=== PATIENT | female | born 1990 | race Caucasian/White ===

== ENCOUNTER → 2018-01-20 11:46 | Outpatient (CLI) | payer OTHER, SELFPAY ==
[2018-01-07 09:04] VITALS: BMI 23.8
[2018-01-20 13:15] LABS: hCG Titer Quant., Serum 10131 mIU/mL (<9 non-preg)
== END ==
PROVIDERS: Family Provider Family Medicine; PCP Family Medicine; Referring Provider Obstetrics & Gynecology; Visit Provider Obstetrics & Gynecology
DX: O20.9 Hemorrhage in early pregnancy, unspecified (principal); Z3A.00 Weeks of gestation of pregnancy not specified
CPT/HCPCS: 36415; 84702; 86850; 86900

== ENCOUNTER → 2018-01-22 11:49 | Outpatient (CLI) | payer OTHER, SELFPAY ==
[2018-01-07 09:04] VITALS: BMI 23.8
[2018-01-22 15:18] LABS: hCG Titer Quant., Serum 19015 mIU/mL (<9 non-preg)
--- OUTSIDE RECORDS SUMMARY | 2018-03-10 15:17 | XMS RPT_ITS ---
:1990 Author Organization OHIP Support Name Relationship Address Phone MAHI SUMMERS Unavailable [address] + [place] [address] AMAN GRAYSON Unavailable [address] [facility] + [place] [address] [place] Unavailable [address] + [place] [address] MAHI SUMMERS Unavailable [address] + [place] [address] AMAN GRAYSON Unavailable [address] [facility] + [place] [address] [place] Unavailable [address] + [place] [address] MAHI SUMMERS Unavailable [address] + [place] [address] [place] Unavailable [address] + [place] [address] MAHI SUMMERS Unavailable [address] + [place] [address] [place] Unavailable [address] + [place] [address] MAHI SUMMERS Unavailable [address] + [place] [address] [place] Unavailable [address] + [place] [address] MAHI SUMMERS Unavailable [address] + [place] [address] [place] Unavailable [address] + [place] [address] MAHI SUMMERS Unavailable [address] + [place] [address] [place] Unavailable [address] + [place] [address] MELINA, MAHI Unavailable [address] + [place] [address] [place] Unavailable [address] + [place] [address] MAHI SUMMERS Unavailable [address] + [place] [address] U Unavailable Unavailable Unavailable Care Team Providers Name Role Phone Skyla Sheets Attending Unavailable Marcanthony, Skyla Referring Unavailable Ring, Primo Primary Care Unavailable Marcanthony, Skyla Attending Unavailable Ring, Primo Referring Unavailable Marcanthony, Skyla Attending Unavailable Ring, Primo Referring Unavailable Marcanthony, Skyla Attending Unavailable Ring, Primo Primary Care Unavailable Marcanthony, Skyla Referring Unavailable Marcanthony, Ksyla Attending Unavailable Marcanthony, Skyla Referring Unavailable Ring, Primo Primary Care Unavailable [place] Attending Unavailable Ring, Primo Referring Unavailable Marcanthony, Ksyla Attending Unavailable Ring, Primo Referring Unavailable Ring, Primo Primary Care Unavailable Truong, Christin Attending Unavailable Ring, Primo Referring Unavailable Marcanthony, Skyla Attending Unavailable Marcanthony, Sklya Referring Unavailable Ring, [facility] Primary Care Unavailable PROBLEMS PROBLEMS DATE TYPE CONDITION / CODE ATTENDING STATUS SOURCE 02/21/2018 Unknown Z34.90 - Encounter Marcanthony, Active [place] for supervision of [facility] normal , Hospital unspecified, Repository unspecified trimester / Z34.90(ICD-10) 02/21/2018 Unknown Z34.81 - Encounter Marcanthony, Active [place] for supervision of [facility] other normal Hospital , first Repository trimester / Z34.81(ICD-10) 02/10/2018 Unknown Z3A.08 - 8 weeks Marcanthony, Active [place] gestation of [facility] / Hospital Z3A.08(ICD-10) Repository 02/10/2018 Unknown Z34.01 - Encounter Marcanthony, Active [place] for supervision of [facility] normal first Hospital , first Repository trimester / Z34.01(ICD-10) 02/10/2018 Unknown O41.8X10 - Other Marcanthony, Active [place] specified disorders [facility] of amniotic fluid Hospital and membranes, Repository first trimester, not applicable or unspecified / O41.8X10(ICD-10) 02/10/2018 Unknown O46.8X1 - Other Marcanthony, Active [place] antepartum [facility] hemorrhage, first Hospital trimester / Repository O46.8X1(ICD-10) 03/29/2017 Unknown Z31.69 - Encounter Sudeep, Active [place] for other general [facility] counseling and Hospital advice on Repository procreation / Z31.69(ICD-10) 03/29/2017 Unknown Z01.419 - Encounter Sudeep, Active [place] for gynecological [facility] (general) (routine) Repository without abnormal findings / Z01.419(ICD-10) PROCEDURES PROCEDURES No Procedure Records FoundRESULTS RESULTS DETENTION OFFICER OFFICE VISIT Observed: 03/03/2018 Status: F Source: [place] REPORT 3:52 PM [facility] REPOSIT[facility] [address] [place] [address]. [address] [place] [address] OFFICE VISIT Date of Service: 03/03/18 MR#: [id number] Acct: [id number] Name: MARI GRAYSON Kelly Rep #: [id number] : 1990 Provider: CHELITA Guerin Age/Sex: 27/F [place] [facility] [place]: Signed Intake Vital Signs03/03/18 Body Mass Index (BMI) 23.8 03/03/18 Height 5 ft 1 in 03/03/18 Weight: 126 lb 03/03/18 Body Mass Index (BMI) 23.8 03/03/18 Blood Pressure 128/80 H H Intake Visit Reasons: boil/cyst? draining, but irritated Lighting Director Required: No Is patient in pain?: No Allergies aloe vera [From Vagisil] Adverse Reaction (Verified 03/03/18 15:15) swollen, burning benzocaine [From Vagisil] Adverse Reaction (Verified 03/03/18 15:15) swollen, burning mineral oil [From Vagisil] Adverse Reaction (Verified 03/03/18 15:15) swollen, burning resorcinol [From Vagisil] Adverse Reaction (Verified 03/03/18 15:15) swollen, burning starch [From Vagisil] Adverse Reaction (Verified 03/03/18 15:15) swollen, burning vitamin E (d-alpha tocopherol) [From Vagisil] Adverse Reaction (Verified 03/03/18 15:15) swollen, burning vitamins A and D [From Vagisil] Adverse Reaction (Verified 03/03/18 15:15) swollen, burning Medications vitamin,calcium,dlfqdwcm-skgj-qlbec acid tablet 1 tab PO DAILY 01/31/18 [History Confirmed 03/03/18] cephalexin 500 mg capsule 500 mg PO Q12H 7 Days #14 cap 03/03/18 [Rx Confirmed 03/03/18] Last Menstral Period: 12/12/17 Zika: Zika virus screening: Negative : No PFSH PFSH Family History Grandmother Diabetes Grandfather Cancer Leukemia Social History Smoking Status: Never smoker alcohol intake: never details: social substance use type: does not use caffeine: No what type of physical activity do you participate in: none seatbelt use: always do you feel safe at home: Yes additional social history: Aman- [employer] Patient works at [employer] Pregancy History 0 Elective abortions Hx Para Spontaneous abortions HPI boil/cyst? draining, but irritated: Details: MARI GRAYSON is a 27 year old who presents for routine OB visit. OB Visit PROSPER Calculator Estimated Delivery Date 09/18/18 Based on LMP (certain) 12/12/17 Current WG 11w 4d Number 1 Expected Delivery Route/Plan Specific Issue/Plans flu vaccine: declines tdap vaccine: [] rhogam: [] LARC form signed: [] labor support person: [] pain management: [] cut cord/dad catch: [] : [] PP control planned: [] special requests: [] Initial Weight: Not Recorded Date Weight BP Urine PrFHR FuHt Pres MoCTX DilationFetal StVisit NoProviderComments E ot v te GA G Effac lucose ed Visit Notes Visit Date: 03/03/18 Work in for tender lump inner buttocks-confirm occlusion cyst. LAKIA Avila on 03/03/18 ACOG First Trimester First Trimester: Desire for , Alcohol, Tobacco Cessation, Illicit/Recreational Drug/Substance Use, Intimate Partner Violence, Barriers to care, Unstable Housing, Communication Barriers, Environmental/Work Hazards, Anticipated Course of Care, Toxoplasmosis Precations, Use of Any medications, Sexual activity, Exercise, Dental Care, Sauna/Hot tub use, Seat Belt use, Childbirth classes/Hospital facilities, , Travel, Indications for US and Screening for Aneuploidy Diagnostics Diagnostics Labs Blood Type O POSITIVE 02/21/18 Antibody Screen NEGATIVE 02/21/18 Hct 37.3 % (37-47) 02/21/18 Hgb 12.4 g/dl (12.0-15.0) 02/21/18 Rubella IgG Antibody 53.2 IU/mL 02/21/18 RPR NONREACTIVE (NONREACTIVE) 02/21/18 Hep Bs Antigen Negative (Negative) 02/21/18 Chlam trachomat DNA PCR Negative (Negative) 02/10/18 N.gonorrhoeae DNA (PCR) Negative (Negative) 02/10/18 Miscellaneous Test 02/21/18 Details: HIV: Urine Culture: Sequential Screen: NIPT Screen: Exam Const General: cooperative, no acute distress Orientation: oriented x3 Other: Right inner gluteus near perineum is 1cm erythematous occlusion cyst without drainage. States did have drainage yesterday Assessment AND Plan Problems 1. Inclusion cyst L72.0 2. Encounter for supervision of normal first in first trimester Z34.01 PROSPER 09/18/18 Aman. 3. 11 weeks gestation of Z3A.11 genetic, ntd, carrier screening discussed and definitely wants sequential but considering NIPT. 4. Subchorionic hemorrhage of placenta in first trimester, single or unspecified fetus O41.8X10 Plan Warm compresses or tub soaks. Do not manipute Rx Keflex. Keep routine OB appt or call if symptoms worsen Orders Orders: Medications New: Coding Level of Care Code Off vis,est,level 3 Diagnoses Inclusion cyst L72.0 Encounter for supervision of normal first in first trimester Z34.01 Normal : normal first Trimester: first trimester 11 weeks gestation of Z3A.11 Weeks of gestation: 11 weeks Subchorionic hemorrhage of placenta in first trimester, single or unspecified fetus O41.8X10 Fetus number: single or unspecified fetus Trimester: first trimester 03/03/18 1552 <Electronically signed by Christin DORMAN> Date Christin Guerin [employer] Cosigner Signature: Date (if applicable) CC: MISCELLANEOUS LAB Collected: 02/21/2018 Status: F Source: [place] PROCEDURE 9:24 AM [facility] REPOSITORY Order Comment: Test(s) Ordered: PANORAMA TYPE CODE TESTS RESULT OUT OF RANGE REFERENCE UNITS LAB L801.1541 Normal [facility] [place] Result Comment: Sent directly to testing facility per ordering physician. @ 02/26/18 1252 MYOUNG Performed By: #### L801.1541 #### [facility] [address] [place], [address] CBC W/DIFF, AUTOMATED Collected: 02/21/2018 Status: F Source: [place] 9:23 AM [facility] REPOSITORY TYPE CODE TESTS RESULT OUT OF RANGE REFERENCE UNITS LAB L100.1000 4.4-11.0 K/mm3 Normal WBC 7.8 LAB L100.1200 4.2-5.4 M/mm3 Normal RBC 4.34 LAB L100.1300 12.0-15.0 g/dl Normal HGB 12.4 LAB L100.1400 37-47 % Normal HCT 37.3 LAB L100.1500 81-99 fL Normal MCV 85.9 LAB L100.1600 27.0-32.0 pg Normal MCH 28.6 LAB L100.1700 32-36 g/gl Normal MCHC 33.2 LAB L100.1810 11.6-14.6 % Normal RDW CV 13.3 LAB L100.1820 35.1-43.9 fl Normal RDW SD 41.7 LAB L100.1900 150-450 K/mm3 Normal PLT 230 LAB L100.2000 6.2-12.0 fl Normal MPV 9.8 LAB L100.2100 47-70 % Normal NEUT% 67.4 LAB L100.2200 19-41 % Normal LY% 22.1 LAB L100.2300 0-10 % Normal MONO% 9.4 LAB L100.2400 0-5 % Normal EO% 0.5 LAB L100.2500 0-1 % Normal BASO% 0.5 LAB L100.2550 0.0-0.9 % Normal IM GRAN % 0.100 Result Comment: IG% - Immature Granulocytes (promyelocytes, myelocytes and metamyelocytes) > 1% indicates that a LEFT SHIFT is Present. LAB L100.2620 2.0-7.7 X10 3/uL Normal Absolute Neut 5.3 LAB L100.2720 0.83-4.51 X10 3/ul Normal Absolute Lymph 1.73 Performed By: #### L100.0100 #### [facility] [address] [place], [address] RUBELLA IGG Collected: 02/21/2018 Status: F Source: [place] 9:23 AM [facility] REPOSITORY TYPE CODE TESTS RESULT OUT OF RANGE REFERENCE UNITS LAB L509.4000 IU/mL Normal Rubella IgG 53.2 Result Comment: Antibody results Interpretation of Immune Status < 5 IU/ml Presumed Non-immune 5 - < 10 IU/ml Equivocal > or = 10 IU/ml Presumed Immune Performed By: #### L509.4000, L3890.6005 #### [facility] [address] [place], [address] HIV - [facility] Collected: 02/21/2018 Status: F Source: [place] 9:[facility] TYPE CODE TESTS RESULT OUT OF RANGE REFERENCE UNITS LAB L3890.6005 Nonreactive Normal HIV - [facility] Non-Reactive Performed By: #### L509.4000, L3890.6005 #### [facility] [address] [place], [address] TYPE AND SCREEN Collected: 02/21/2018 Status: F Source: [place] 9:23 AM [facility] REPOSITORY Order Comment: Reason for Type AND Screen/Red Cells: TYPE CODE TESTS RESULT OUT OF RANGE REFERENCE UNITS LAB B10.0800 O Normal BLOOD TYPE GEL POSITIVE LAB B100.4000 Normal Antibody NEGATIVE Screen Performed By: #### B101.7450 #### [facility] [address] [place], [address] HEPATITIS B SURFACE Collected: 02/21/2018 Status: F Source: [place] AG 9:23 AM [facility] REPOSITORY TYPE CODE TESTS RESULT OUT OF RANGE REFERENCE UNITS LAB L3100.0400 Negative Normal HB Negative SURF AG Result Comment: Performed at: [facility] [id number] Dental Mechanic: Kodak Tineo PhD, Phone: [phone] Performed By: #### L3100.0390 #### [facility] (refer to report for specific site) refer to report for address and phone number RAPID PLASMIN REAGIN Collected: 02/21/2018 Status: F Source: [place] (RPR) 9:23 AM [facility] REPOSITORY TYPE CODE TESTS RESULT OUT OF REFERENCE UNITS RANGE LAB L700.5000 NONREACTIVE NONREACTIVE Normal RPR Performed By: #### L700.5000 #### [facility] [facility] [place], [place], [address] CT/NG [facility] BY PCR Collected: 02/10/2018 Status: F Source: [place] 5:35 PM [facility] REPOSIT[facility] TYPE CODE TESTS RESULT OUT OF RANGE REFERENCE UNITS LAB L8200.2100 Negative Normal Chlam Negative Trac PCR LAB L8200.2200 Negative Normal NG by Negative PCR Performed By: #### L8200.2000 #### [facility] [place], [place], [address] Observed: 02/10/2018 Status: F Source: [place] CULTURE, URINE 5:35 PM [facility] REPOSITORY Urine Culture There are no CLSI standards for interpretation of this Drug/Organism combination. ORGANISM 1: Lactobacillus species [place] Count 25,000-50,000 Performed By: #### M100.0650 #### [facility] [address] [place], [place] [address]e. [place], [place], [address] DETENTION OFFICER OFFICE VISIT Observed: 02/10/2018 Status: F Source: [place] REPORT 2:13 PM [facility] REPOSITORY [facility] [address] [place] [address] OFFICE VISIT Date of Service: 02/10/18 MR#: [id number] Acct: [id number] Name: MARI GRAYSON Rep #: [id number] : 1990 Provider: Skyla Sheets MD Age/Sex: 27/F [place] [facility] [place]: Signed Intake Vital Signs02/10/18 Body Mass Index (BMI) 23.8 02/10/18 Height 5 ft 1 in 02/10/18 Weight: 124 lb 2 oz 02/10/18 Body Mass Index (BMI) 23.4 02/10/18 Blood Pressure 118/74 Intake Visit Reasons: NOB LMP 12/12 Chief Complaint: New OB Accompanied by: Spouse Is patient in pain?: No Allergies aloe vera [From Vagisil] Adverse Reaction (Verified 02/10/18 13:27) swollen, burning benzocaine [From Vagisil] Adverse Reaction (Verified 02/10/18 13:27) swollen, burning mineral oil [From Vagisil] Adverse Reaction (Verified 02/10/18 13:27) swollen, burning resorcinol [From Vagisil] Adverse Reaction (Verified 02/10/18 13:27) swollen, burning starch [From Vagisil] Adverse Reaction (Verified 02/10/18 13:27) swollen, burning vitamin E (d-alpha tocopherol) [From Vagisil] Adverse Reaction (Verified 02/10/18 13:27) swollen, burning vitamins A and D [From Vagisil] Adverse Reaction (Verified 02/10/18 13:27) swollen, burning Medications vitamin,calcium,zgzyrlvv-ioeh-fkude acid tablet 1 tab PO DAILY 01/31/18 [History Confirmed 02/10/18] Last Menstral Period: 12/12/17 Zika: Zika virus screening: Negative : No PFSH PFSH Family History Grandmother Diabetes Grandfather Cancer Leukemia Social History Smoking Status: Never smoker alcohol intake: never details: social substance use type: does not use caffeine: No what type of physical activity do you participate in: none seatbelt use: always do you feel safe at home: Yes 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 OB Visit Comments: fhts seen viable IUP Menstrual History Last Menstral Period: 12/12/17 Reported LMP: definite Normal amount/duration: Yes On hormonal BC at conception: No Antepartum Record Genetic Screening: Congenital Heart Defect: Other, Neural Tube Defect: Other, Hemoglobinopathy Or Carrier: Other, Cystic Fibrosis: Other, Chromosome Abnormality: Other, Ollie-Sachs: Other, Hemophilia: Other, Intellectual Disability/Autism: Other, Recurrent Loss/Stillbirth: Other, Other Structural Defect: Other, Other Genetic Disease: Other, Maternal Metabolic Disorder: Other Infection History: Live with someone with TB or Exposed to TB: No, Patient or Partner has history of Genital Herpes: No, Rash or Viral illness since last mentrual period: No, Prior GBS-Infected child: No, History of STD: No, HIV Infection: No, History of Hepatitis: No, Recent travel outside of [place]: No, Concern for Hep exposure: No, Varicella immune: Yes Medical History Medical History: Negative: Diabetes, Hypertension, Heart disease, Auto-immune disorder, Kidney disease/UTI, Neurologic/epilepsy, Psychiatric, Depression/ depression, Hepatitis/liver disease, Varicosities/phlebitis, Thyroid dysfunction, Trauma/domestic violence, History of blood transfusions, D (Rh) Sensitized, Pulmonary (e.g.,TB,Asthma), Seasonal allergies, Drug/latex allergies/reactions, Breast, Cardiology Technologist surgery, Operations/hospitalizations, Anesthetic complications, History of abnormal pap, Uterine anomaly/maris, Infertility, Anti-retroviral treatment, Relevant family history, Other ACOG First Trimester First Trimester: , Desire for , Alcohol, Tobacco Cessation, Illicit/Recreational Drug/Substance Use, Intimate Partner Violence, Barriers to care, Unstable Housing, Communication Barriers, Environmental/Work Hazards, Anticipated Course of Care, Nurtrition and weight gain, Toxoplasmosis Precations, Use of Any medications, Sexual activity, Exercise, Dental Care, Sauna/Hot tub use, Seat Belt use, Childbirth classes/Hospital facilities, Travel, Indications for US and Screening for Aneuploidy ROS Const Denies fever(s), Reports system reviewed and no additional complaints, except as docu, Reports fatigue Eyes Reports system reviewed and no additional complaints, except as docu ENT Reports system reviewed and no additional complaints, except as docu Card Denies chest pain, Denies shortness of breath Resp Reports system reviewed and no additional complaints, except as docu, Denies shortness of breath, Denies cough GI Reports nausea, Denies abdominal pain Reports system reviewed and no additional complaints, except as docu Musc Reports system reviewed and no additional complaints, except as docu Skin/Breast Reports system reviewed and no additional complaints, except as docu Neuro Yes system reviewed and no additional complaints, except as docu Psych Reports system reviewed and no additional complaints, except as docu Endo Reports fatigue, Reports system reviewed and no additional complaints, except as docu Exam Const General: healthy appearing, comfortable, no acute distress Orientation: alert [facility] Head: normal to inspection, atraumatic, normocephalic Ears: external ears normal, hearing grossly normal bilaterally Nose: nares normal, external nose normal Mouth: oral mucosae normal Teeth and gingiva: dentition normal Eyes General: appearance normal, both eyes and all related structures Neck Neck: no lymphadenopathy, supple, normal visual inspection Thyroid: thyroid normal Resp Effort AND Inspection: normal respiratory effort GI Inspection: normal to inspection Palpation: soft, no hepatosplenomegaly General: bladder normal to palpation External Female Exam: normal external appearance, normal appearance of the urethra Urethra: normal appearance of the urethra Speculum Exam - Vagina: normal appearance of the vagina, normal vaginal discharge Speculum Exam - Cervix: normal appearance of the cervix Bimanual Exam- Vagina AND Uterus: bladder normal to palpation, normal bimanual exam, uterus non-tender, other Bimanual Exam- Adnexa, other: adnexae non-tender Skin General: no rashes or lesions noted Neuro Motor: muscle tone normal throughout, no movement abnormalities noted Extrem General: normal to inspection, full ROM Assessment AND Plan Problems 1. 8 weeks gestation of Z3A.08 genetic, ntd, carrier screening discussed and definitely wants sequential but considering NIPT. 2. Encounter for supervision of normal first in first trimester Z34.01 PROSPER 09/18/18 Aman. 3. Subchorionic hemorrhage of placenta in first trimester, single or unspecified fetus O41.8X10; O46.8X1 Plan Patient oriented to practice and discussed care expectations and screenings. ACOG book offered to patient. Discussed routine and specially indicated labs if needed- patient consents to testing. see problem list details for plan information. Optional screening including carrier screenings, neural tube defect screening, sequential screening, and NIPT screening offered to patient and patient chose: see problem list Orders Orders: Supplemental Info ACOG book given and patient encouraged to read about nutrition, exercise, weight gain, and food avoidance in . Coding Level of Care Code OB Routine Diagnoses 8 weeks gestation of Z3A.08 Weeks of gestation: 8 weeks Encounter for supervision of normal first in first trimester Z34.01 Normal : normal first Trimester: first trimester Subchorionic hemorrhage of placenta in first trimester, single or unspecified fetus O41.8X10; O46.8X1 Fetus number: single or unspecified fetus Trimester: first trimester 02/10/18 1413 <Electronically signed by Skyla Sheets MD> Date Skyla Sheets MD Cosigner Signature: Date (if applicable) CC: DETENTION OFFICER OFFICE VISIT Observed: 02/01/2018 Status: F Source: [place] REPORT 4:14 AM [facility] REPOSITORY [facility] [address] [place] [address] OFFICE VISIT Date of Service: 01/31/18 MR#: [id number] Acct: [id number] Name: MARI GRAYSON Rep #: [id number] : 1990 Provider: Skyla Sheets MD Age/Sex: 27/F [place] [facility] [place]: Signed Intake Vital Signs01/31/18 Body Mass Index (BMI) 23.8 01/31/18 Height 5 ft 1 in 01/31/18 Weight: 125 lb 01/31/18 Body Mass Index (BMI) 23.6 01/31/18 Blood Pressure 118/78 Intake Visit Reasons: EARLY OB SCAN - BROWN DISCHARGE Lighting Director Required: No Is patient in pain?: No Allergies aloe vera [From Vagisil] Adverse Reaction (Verified 01/31/18 16:33) swollen, burning benzocaine [From Vagisil] Adverse Reaction (Verified 01/31/18 16:33) swollen, burning mineral oil [From Vagisil] Adverse Reaction (Verified 01/31/18 16:33) swollen, burning resorcinol [From Vagisil] Adverse Reaction (Verified 01/31/18 16:33) swollen, burning starch [From Vagisil] Adverse Reaction (Verified 01/31/18 16:33) swollen, burning vitamin E (d-alpha tocopherol) [From Vagisil] Adverse Reaction (Verified 01/31/18 16:33) swollen, burning vitamins A and D [From Vagisil] Adverse Reaction (Verified 01/31/18 16:33) swollen, burning Medications vitamin,calcium,zatvqxvg-qnzr-hvzdx acid tablet 1 tab PO DAILY 01/31/18 [History Confirmed 01/31/18] Last Menstral Period: 12/12/17 Zika: Zika virus screening: Negative : No PFSH PFSH Social History Smoking Status: Never smoker alcohol intake: current details: social substance use type: does not use caffeine: No frequency: 1-2 times per week seatbelt use: always do you feel safe at home: Yes 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 small subchorionic hemorrhage ACOG First Trimester First Trimester: Discussed Diagnostics Diagnostics Labs Blood Type O POSITIVE 01/20/18 Antibody Screen NEGATIVE 01/20/18 Details: HIV: Urine Culture: Sequential Screen: NIPT Screen: Assessment AND Plan Problems 1. Subchorionic hemorrhage O41.8X90; O46.8X9 Plan fu for new ob visit Coding Level of Care Code OB Routine Diagnoses Subchorionic hemorrhage O41.8X90; O46.8X9 02/01/18 0414 <Electronically signed by Skyla Sheets MD> Date Skyla Sheets MD Cosigner Signature: Date (if applicable) CC: HCG TITER QUANT., Collected: 01/22/2018 Status: F Source: PRASHANT SERUM 11:53 AM [facility] REPOSITORY TYPE CODE TESTS RESULT OUT OF RANGE REFERENCE UNITS LAB L700.8000 <9 non-preg mIU/mL High HCG 60843 QUANT. Performed By: #### L700.8000 #### [facility] [address] [place], [place], [address] HCG TITER QUANT., Collected: 01/20/2018 Status: F Source: PRASHANT SERUM 11:56 AM [facility] REPOSITORY TYPE CODE TESTS RESULT OUT OF RANGE REFERENCE UNITS LAB L700.8000 <9 non-preg mIU/mL High HCG 04057 QUANT. Performed By: #### L700.8000 #### [facility] [address] [place], [address] TYPE AND SCREEN Collected: 01/20/2018 Status: F Source: PRASHANT 11:56 AM [facility] REPOSITORY Order Comment: Reason for Type AND Screen/Red Cells: TYPE CODE TESTS RESULT OUT OF RANGE REFERENCE UNITS LAB B10.0800 O Normal BLOOD TYPE GEL POSITIVE LAB B100.4000 Normal Antibody NEGATIVE Screen Performed By: #### B101.7450 #### [facility] [address] [place], [place], [address] DETENTION OFFICER OFFICE VISIT Observed: 01/07/2018 Status: F Source: PRASHANT REPORT 9:25 AM [facility] REPOSITORY [facility] 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 Is patient in pain?: Yes (More irritating due to rubbing) Pain scale (1-10): 4 Allergies aloe vera [From Vagisil] Adverse Reaction (Verified 01/07/18 09:06) swollen, burning benzocaine [From Vagisil] Adverse Reaction (Verified 01/07/18 09:06) swollen, burning mineral oil [From Vagisil] Adverse Reaction (Verified 01/07/18 09:06) swollen, burning resorcinol [From Vagisil] Adverse Reaction (Verified 01/07/18 09:06) swollen, burning starch [From Vagisil] Adverse Reaction (Verified 01/07/18 09:06) swollen, burning vitamin E (d-alpha tocopherol) [From Vagisil] Adverse Reaction (Verified 01/07/18 09:06) swollen, burning vitamins A and D [From Vagisil] Adverse Reaction (Verified 01/07/18 09:06) swollen, burning Medications cephalexin 500 mg capsule 500 mg PO Q12H 7 Days #14 cap 01/07/18 [Rx Confirmed 01/07/18] Is last menstrual period known: Yes Last Menstral Period: 12/12/17 Post menopausal: No Patient : No : No PFSH Social History Smoking Status: Never smoker alcohol intake: current details: social substance use type: does not use caffeine: No frequency: 1-2 times per week seatbelt use: always do you feel safe at home: Yes additional social history: [employer] 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 Actually smaller today but has not noted any discharge. No contraception, wants . Menses due next week. Female Reproductive History Last Menstral Period: 12/12/17 Pregancy History 0 Elective abortions Hx Para Spontaneous abortions Exam Const General: cooperative, no acute distress Nutritional Appearance: well nourished Orientation: oriented x3 External Female Exam: bartholin cyst (left labia, small <1cm. sl erythema. No fluctuance. ) Assessment AND Plan Problems 1. Bartholin's gland infection N75.8 Plan Rx keflex Warm soaks Call if worsens Medications New: On Hold: levonorgestrel-ethinyl estrad 0.1-20 mg-mcg (Aviane) Hold C1 tab PO QDAY 28 tabs 12RF omment: None Coding Level of Care Code Off vis,est,level 3 Diagnoses Bartholin's gland infection N75.8 01/07/18 0925 <Electronically signed by Christin DORMAN> Date Christin DORMAN Cosigner Signature: Date (if applicable) CC: DETENTION OFFICER OFFICE VISIT Observed: 03/29/2017 Status: F Source: PRASHANT REPORT 9:05 AM [facility] 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) Chief Complaint: NEW annual Lighting Director Required: No Is patient in pain?: No Allergies No Known Allergies Allergy (Unverified 03/29/17 08:29) Medications levonorgestrel-ethinyl estradiol 0.1 mg-20 mcg tablet 1 tab PO QDAY 03/29/17 [History Confirmed 03/29/17] Is last menstrual period known: Yes Last Menstral Period: 03/28/17 Post menopausal: No Patient : No : No PFSH Social History Smoking Status: Never smoker alcohol intake: current details: social substance use type: does not use caffeine: No frequency: 1-2 times per week seatbelt use: always do you feel safe at home: Yes additional social history: Engaged- [employer] Patient works at [employer] Pregancy History 0 Elective abortions Hx Para Spontaneous abortions HPI 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 getting in october, wants to conceive right away. 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), PCB: No ROS Const Constitutional: Reports as per HPI; denies poor appetite, fatigue, increased appetite, weight gain or weight loss Cardio Card: Denies chest pain Resp Resp: Denies dyspnea or cough GI GI: Reports as per HPI; denies bloating, abdominal pain, constipation, vomiting or nausea : Reports as per HPI and other; denies blood in urine, vaginal odor, vaginal itching, vaginal dryness, vaginal discharge, urinary urgency, urinary incontinence, urinary frequency, pelvic pain, painful urination, difficulty urinating, prolapse symptoms or nipple discharge Skin Skin/Breast: Denies breast pain, breast skin changes, nipple discharge, breast lump or changing lesions Exam Const General: cooperative, healthy appearing, comfortable, no acute distress, well developed, well groomed [facility] Head: normal to inspection, normocephalic Ears: hearing grossly normal bilaterally, external ears normal Nose: external nose normal Face and sinus: normal facial exam Neck Neck: normal visual inspection, full ROM, no lymphadenopathy Thyroid: thyroid normal Chest Chest palpation AND inspection: normal inspection of the chest Breast inspection: normal inspection of the breasts, normal inspection of the axillae Breast palpation: normal palpation of the breasts, normal palpation of the axillae, no axillary lymphadenopathy Resp Effort AND Inspection: normal respiratory effort GI Inspection: normal to inspection, non-distended Palpation: no guarding, soft, no hepatosplenomegaly General: bladder normal to palpation External Female Exam: normal external appearance, normal appearance of the urethra, no lesions Urethra: normal appearance of the urethra, normal palpation Speculum Exam - Vagina: normal appearance of the vagina, normal vaginal discharge Speculum Exam - Cervix: normal appearance of the cervix, no cervical discharge, no lesions, nontender Bimanual Exam- Vagina AND Uterus: No cervical tenderness, normal bimanual exam, uterine size normal, bladder normal to palpation, uterine mobility normal, uterine consistency normal, uterus non-tender, no cervical motion tenderness Bimanual Exam- Adnexa, other: normal adnexae, no adnexal masses, adnexae non-tender Skin General: no rashes or lesions noted Neuro General: alert, moves all extremities, no focal motor deficits Extrem General: no pedal edema, normal to inspection Psych Appearance: grossly normal Mental Status: mental status grossly normal Affect: normal affect Speech and Movement: speech and movement normal Attitude: cooperative Assessment AND Plan Problems 1. Pre-conception counseling Z31.69 2. Encounter for gynecological examination without abnormal finding Z01.419 Plan Cervical cancer screening: na Breast cancer screening: clinical STD prevention and contraceptive options including their risks, benefits, and alternatives were reviewed with the patient and she chooses: ocp Encouraged maintenance of a healthy weight and active lifestyle and handout given. Calcium/vitamin D recommendations provided. Annual exam handout including recommendations for good health guidelines and basic screening information given. Problem list up to date, see problem list details for any additional plan information. follow up in one year for annual health maintenance exam or sooner if needed. Coding Level of Care Code Off vis,new,prev 18-39yrs Diagnoses Pre-conception counseling Z31.69 Encounter for gynecological examination without abnormal finding Z01.419 Gynecological examination findings: abnormal findings ABSENT 03/29/17 0905 <Electronically signed by Skyla Sheets MD> Date Skyla Sheets MD Cosigner Signature: Date (if applicable) CC: ALLERGIES ALLERGIES DATE TYPE / CODE NAME / CODE REACTION SEVERITY SOURCE 03/03/2018 Drug vitamin E swollen, Unknown [facility] All[facility]/416 (d-alpha [facility] 511450(SNOM tocopherol)/F00 [address] CT) 7007538(RXNORM) 03/03/2018 Drug vitamins A and swollen, Unknown [facility] Allergy/416 D/[id number](RX [facility] 171542(SNOM NORM) Repository ED CT) 03/03/2018 Drug benzocaine/F006 swollen, Unknown [facility] Allergy/416 836418(RXNORM) [facility] 929940(SNOM Repository ED CT) 03/03/2018 Drug mineral swollen, Unknown [facility] Allergy/416 oil/B766758732( [facility] 582561(SNOM RXNORM) Repository ED CT) 03/03/2018 Drug aloe swollen, Unknown [facility] Allergy/416 vera/H564859165 [facility] 907209(SNOM (RXNORM) Repository ED CT) 03/03/2018 Drug resorcinol/F006 swollen, Unknown [facility] Allergy/416 988904(RXNORM) [facility] 009426(SNOM Repository ED CT) 03/03/2018 Drug starch/P5083279 swollen, Unknown [facility] Allergy/416 33(RXNORM) [facility] 813160(SNOM Repository ED CT) 03/29/2017 Drug No Known Unknown [facility] Allergy/416 Allergies/F0019 [facility] 030854(SNOM 67306(RXNORM) Repository ED CT) ENCOUNTERS ENCOUNTERS ADMIT/DISCHARGE ACCOUNT ADMITTING ENCOUNTER LOCATION SOURCE NUMBER CLASS 03/03/2018/ [id number] Ambulatory BMSBuilding:B [facility] [address] [facility] Repository 02/21/2018 [id number] Ambulatory [facility] 6 [facility] ing:LAB Repository 02/10/2018 [id number] Ambulatory [facility] ing:LABSPEC Repository 02/10/2018/ [id number] Ambulatory BMSBuilding:B [facility] [address] [facility] Repository 01/31/2018/ [id number] Ambulatory BMSBuilding:B [facility] [address] [facility] Repository 01/22/2018 [id number] Ambulatory [facility] 2 [facility] ing:LAB Repository 01/20/2018 [id number] Ambulatory [facility] ing:LAB Repository 01/07/2018/ [id number] Ambulatory BMSBuilding:B [facility] [address] [facility] Repository 03/29/2017/ [id number] Ambulatory BMSBuilding:B Pr[facility] [address] [facility] Repository PAYERS PAYERS ENCOUNTER GUARANTOR PAYER SUBSCRIBER SOURCE 03/03/2018 MARI GRAYSON121 Primary AMAN KRUKDOB: Prashant [place] Insurance[place]HE[place]olic [id number] Number[place] Hospital [address]Nyf: 330 [id number] Repository [phone] () Date:2772-66-26VJ [id number] [place] [address]SG: 03/03/2018 Secondary NOT GIVENUNK [facility] Insurance:SELF PAY [facility] Hospital Number: Effective Repository Date:2018-03-03 02/21/2018 MARI NARAYANANUK121 Primary AMAN KRUKDOB: [facility] [place] Insurance:ANTHEMPolic [id number] Number: Hospital [id number]: (330 [id number] Repository [phone] () Date:7829-35-85FE [id number] [place] [address]LJ: 02/21/2018 Secondary NOT GIVENUNK [facility] Insurance:SELF PAY [facility] Hospital Number: Effective Repository Date:2018-02-21 02/10/2018 MARI NARAYANANUK121 Primary MAHI GREENEHANNAHOB: Prashant [place] Insurance:SUMMA [id number] Number: Hospital [address]Ofb: (330 [id number] Repository [phone] (HP) Date:9045-94-77SE [address] [place] [phone]: 02/10/2018 Secondary NOT GIVENUNK [facility] Insurance:SELF PAY [facility] Number: Effective Repository Date:2018-02-10 02/10/2018 MARI POPEOB: [facility] [id number] [place] Insurance:[facility] [id number] [place] CAREPolicy Number: Hospital [id number]: (330) [id number] Repository [phone] (HP) Date:5771-32-16PL [address] [place] [address]BR: 02/10/2018 Secondary NOT GIVENUNK [facility] Insurance:SELF PAY [facility] Number: Effective Repository Date:2018-01-10 01/31/2018 MARI POPEOB: Prashant [id number] [place] Insurance:[facility] [id number] [place] CAREPolicy Number: Hospital [address]Wig: (330) [id number] Repository [phone] (HP) Date:1756-41-07SY [address] [place] [address]YX: 01/31/2018 Secondary NOT GIVENUNK Prashant Insurance:SELF PAY [facility] Number: Effective Repository Date:2018-01-30 01/22/2018 MARI POPEOB: [facility] [id number] [place] Insurance:[facility] [id number] [place] CAREPolicy Number: Hospital [address]Wkc: (330) [id number] Repository [phone] (HP) Date:5285-75-80BB [address] [place] [address]DN: 01/22/2018 Secondary NOT GIVENUNK [facility] Insurance:SELF PAY [facility] Number: Effective Repository Date:2018-01-22 01/20/2018 MARI POPEOB: [facility] [id number] [place] Insurance:[facility] [id number] CAREPolicy Number: Hospital [id number]: (330 [id number] Repository [phone] (HP) Date:2766-62-95CZ [address] [address]ZQ: 01/20/2018 Secondary NOT GIVENUNK [facility] Insurance:SELF PAY [facility] Number: Effective Repository Date:2018-01-20 01/07/2018 MARI APARICIOYNE Primary MAHI GREENEHANNAHOB: [facility] [id number] [facility] Insurance:[facility] [id number], [place] CAREPolicy Number: Hospital [id number]: (330) [id number] Repository [phone] () Date:4135-75-65TX [facility] [address] [place] [address]OV: 01/07/2018 Secondary NOT GIVENUNK Prashant Insurance:SELF PAY [facility] Number: Effective Repository Date:2018-01-07 03/29/2017 Mahi Greenen142 Primary MARI ELAYNE Prashant [place] Insurance:[facility] TOSHIA: [place], [place] CAREPolicy Number: [id number] Hospital [address]Zsv: (330) [id number] Repository [phone] () Date:9217-63-15SJ [address] [place] [phone]: 03/29/2017 Secondary NOT GIVENUNK Prashant Insurance:SELF PAY [facility] Number: Effective Repository Date:2017-02-12
== END ==
PROVIDERS: Family Provider Family Medicine; PCP Family Medicine; Referring Provider Obstetrics & Gynecology; Visit Provider Obstetrics & Gynecology
DX: O20.9 Hemorrhage in early pregnancy, unspecified (principal); Z3A.00 Weeks of gestation of pregnancy not specified
CPT/HCPCS: 36415; 84702

== ENCOUNTER → 2018-02-10 17:34 | Outpatient (CLI) | payer OTHER, SELFPAY ==
[2018-02-10 13:41] VITALS: BMI 23.8
[2018-02-10 21:06] LABS: Chlamydia Trachomatis by PCR Negative (Negative); Neisserai gonorrhoeae by PCR Negative (Negative); Probe Check PASS; Sample Adequacy Control PASS; Specimen Processing Control PASS
== END ==
PROVIDERS: Family Provider Family Medicine; PCP Family Medicine; Referring Provider Obstetrics & Gynecology; Visit Provider Obstetrics & Gynecology
DX: Z34.90 Encounter for supervision of normal pregnancy, unspecified, unspecified trimester (principal)
CPT/HCPCS: 87086; 87088; 87491; 87591

== ENCOUNTER → 2018-02-21 09:14 | Outpatient (CLI) | payer BC, SELFPAY ==
[2018-02-10 13:41] VITALS: BMI 23.8
[2018-02-21 09:43] LABS: Absolute Lymphocyte Count 1.73 X10^3/ul (0.83-4.51); Absolute Neutrophil Count 5.3 X10^3/uL (2.0-7.7); Basophil# 0.04 X10^3/uL; Basophil% 0.5 % (0-1); Eosinophil# 0.04 X10^3/uL; Eosinophils% 0.5 % (0-5); Hematocrit 37.3 % (37-47); Hemoglobin 12.4 g/dl (12.0-15.0); Lymphocyte # 1.73 X10^3/ul (4.0); Lymphocyte % 22.1 % (19-41); Mean Corp Hgb Conc 33.2 g/gl (32-36); Mean Corpuscular Hgb 28.6 pg (27.0-32.0); Mean Corpuscular Volume 85.9 fL (81-99); Mean Platelet Vol. 9.8 fl (6.2-12.0); Monocyte# 0.74 X10^3/uL; Monocyte% 9.4 % (0-10); Neutrophil # 5.28 X10^3/uL (2.7-7.7); Neutrophil % 67.4 % (47-70); Platelet Count 230 K/mm3 (150-450); RBC Distribution Width CV 13.3 % (11.6-14.6); RBC Distribution Width SD 41.7 fl (35.1-43.9); Red Blood Count 4.34 M/mm3 (4.2-5.4); White Blood Count 7.8 K/mm3 (4.4-11.0)
[2018-02-21 09:45] LABS: POSITIVE COUNT NO; POSITIVE DIFFERENTIAL NO; POSITIVE MORPHOLOGY NO
[2018-02-21 11:02] LABS: HIV - WCH Non-Reactive (Nonreactive); Rubella IgG 53.2 IU/mL
[2018-02-22 20:22] LABS: HEPATITIS B SURFACE AG Negative (Negative)
[2018-02-28 00:14] LABS: Rapid Plasmin Reagin (RPR) NONREACTIVE (NONREACTIVE)
== END ==
PROVIDERS: Family Provider Family Medicine; PCP Family Medicine; Referring Provider Obstetrics & Gynecology; Visit Provider Obstetrics & Gynecology
DX: Z34.81 Encounter for supervision of other normal pregnancy, first trimester (principal)
CPT/HCPCS: 85025; 86592; 86703; 86762; 86850; 86900; 87340

== ENCOUNTER → 2018-06-27 09:04 | Outpatient (CLI) | payer BC, SELFPAY ==
[2018-06-27 09:01] VITALS: BMI 23.8
[2018-06-27 09:57] LABS: Absolute Lymphocyte Count 1.48 X10^3/ul (0.83-4.51); Absolute Neutrophil Count 7.4 X10^3/uL (2.0-7.7); Basophil# 0.01 X10^3/uL; Basophil% 0.1 % (0-1); Eosinophil# 0.05 X10^3/uL; Eosinophils% 0.5 % (0-5); Hematocrit 33.9 % (37-47); Hemoglobin 11.5 g/dl (12.0-15.0); Lymphocyte # 1.48 X10^3/ul (4.0); Mean Corp Hgb Conc 33.9 g/gl (32-36); Mean Corpuscular Hgb 30.3 pg (27.0-32.0); Mean Corpuscular Volume 89.2 fL (81-99); Mean Platelet Vol. 9.4 fl (6.2-12.0); Monocyte# 0.95 X10^3/uL; Monocyte% 9.6 % (0-10); Neutrophil # 7.35 X10^3/uL (2.7-7.7); Neutrophil % 74.4 % (47-70); Platelet Count 201 K/mm3 (150-450); RBC Distribution Width SD 46.1 fl (35.1-43.9); White Blood Count 9.9 K/mm3 (4.4-11.0)
[2018-06-27 10:00] LABS: POSITIVE COUNT NO; POSITIVE DIFFERENTIAL NO; POSITIVE MORPHOLOGY NO
[2018-06-27 10:07] LABS: Glucose Challenge Gest 1H 50g 108 mg/dL (70-140)
== END ==
PROVIDERS: Family Provider Family Medicine; PCP Family Medicine; Referring Provider Obstetrics & Gynecology; Visit Provider Obstetrics & Gynecology
DX: Z34.93 Encounter for supervision of normal pregnancy, unspecified, third trimester (principal)
CPT/HCPCS: 36415; 82950; 85025

== ENCOUNTER → 2018-08-26 | Outpatient (CLI) | payer BC, SELFPAY ==
[2018-08-26 09:16] VITALS: BMI 23.8
== END | disposition home or self-care (01) ==
LOC: LABSPEC 13:41
PROVIDERS: Family Provider Family Medicine; PCP Family Medicine; Referring Provider Obstetrics & Gynecology; Visit Provider Obstetrics & Gynecology
DX: Z34.90 Encounter for supervision of normal pregnancy, unspecified, unspecified trimester (principal)
CPT/HCPCS: 87081

== ENCOUNTER 2018-09-16 09:35 | Outpatient (CLI) | payer BC, SELFPAY ==
[2018-09-16 09:12] VITALS: BMI 23.8
[2018-09-16 09:48] VITALS: BMI 27.8
[2018-09-16 10:41] LABS: Creatinine, Urine (random) < 13.00 mg/dL (NO RANGE EST.); Protein, Urine (Random) < 6.0 mg/dL (<11.9)
[2018-09-16 11:05] LABS: Hematocrit 38.7 % (37-47); Hemoglobin 13.7 g/dL (12.0-15.0); Mean Corp Hgb Conc 35.4 g/dL (32-36); Mean Corpuscular Hgb 31.9 pg (27.0-32.0); Mean Corpuscular Volume 90.2 fL (81-99); Mean Platelet Vol. 10.6 fl (6.2-12.0); Platelet Count 194 K/mm3 (150-450); RBC Distribution Width CV 13.1 % (11.6-14.6); RBC Distribution Width SD 43.1 fl (35.1-43.9); Red Blood Count 4.29 M/mm3 (4.2-5.4); White Blood Count 10.4 K/mm3 (4.4-11.0)
[2018-09-16 11:11] LABS: International Normalized Ratio 0.9; Prothrombin Time (Protime)PT. 11.8 SECONDS (11.7-14.9)
[2018-09-16 11:12] LABS: Partial Thromboplast Time 25.7 Seconds (24.1-36.2)
[2018-09-16 11:33] LABS: AST(SGOT) 18 U/L (15-37); Alanine Aminotransfer ALT/SGPT 18 U/L (13-56); EST Glomerular Filtration Rate 129 mL/min (>60); Est Glom Filt Rate - Afr Amer 156 mL/min (>60); Estimated Creatinine Clearance 113.36 ml/min; Uric Acid 4.2 mg/dL (2.6-6.0)
--- NOTE | 2018-09-18 06:29 | OB.TRI.PN ---
Progress Notes Date of Service: 09/16/18 Progress Note: patient seen for elevated bp in the [facility]. Bps within normal limits now and labs WNL negative proteinuria fht 130 moderate variability reactive no decelerations category I tracing [place]: no regular A/P: elevated bp- discussed preeclampsia precautions plan dc home reactive nst cat I tracing fu in office for bp check Laboratory Studies: Laboratory Tests 09/16/18 09/16/18 09/16/18 Range/Units 10:50 10:50 10:50 WBC 10.4 (4.4-11.0) K/mm3 RBC 4.29 (4.2-5.4) M/mm3 Hgb 13.7 (12.0-15.0) g/dL Hct 38.7 (37-47) % MCV 90.2 (81-99) fL MCH 31.9 (27.0-32.0) pg MCHC 35.4 (32-36) g/dL RDW Std Deviation 43.1 (35.1-43.9) fl RDW Coeff of Shruthi 13.1 (11.6-14.6) % Plt Count 194 (150-450) K/mm3 MPV 10.6 (6.2-12.0) fl PT 11.8 (11.7-14.9) SECONDS INR 0.9 APTT 25.7 (24.1-36.2) Seconds Creatinine 0.60 (0.55-1.02) mg/dL Estim Creat Clear Calc 113.36 ml/min Est GFR (MDRD) Af Amer 156 (>60) mL/min Est GFR (MDRD) Non-Af 129 (>60) mL/min Uric Acid 4.2 (2.6-6.0) mg/dL AST 18 (15-37) U/L ALT 18 (13-56) U/L U Random Total Protein (<11.9) mg/dL Urine Creatinine (NO RANGE EST.) mg/dL Protein/Creatinin Ratio 09/16/18 Range/Units 10:05 WBC (4.4-11.0) K/mm3 RBC (4.2-5.4) M/mm3 Hgb (12.0-15.0) g/dL Hct (37-47) % MCV (81-99) fL MCH (27.0-32.0) pg MCHC (32-36) g/dL RDW Std Deviation (35.1-43.9) fl RDW Coeff of Shruthi (11.6-14.6) % Plt Count (150-450) K/mm3 MPV (6.2-12.0) fl PT (11.7-14.9) SECONDS INR APTT (24.1-36.2) Seconds Creatinine (0.55-1.02) mg/dL Estim Creat Clear Calc ml/min Est GFR (MDRD) Af Amer (>60) mL/min Est GFR (MDRD) Non-Af (>60) mL/min Uric Acid (2.6-6.0) mg/dL AST (15-37) U/L ALT (13-56) U/L U Random Total Protein < 6.0 (<11.9) mg/dL Urine Creatinine < 13.00 (NO RANGE EST.) mg/dL Protein/Creatinin Ratio TNP Multi Select Codes - Urinary/Genital Urinary/Genital CPT Codes: 21437-56 non-stress test Interp
== END 2018-09-16 12:05 | disposition home or self-care (01) ==
LOC: WPOUT 09:42 → WP 09:43
PROVIDERS: Family Provider Family Medicine; PCP Family Medicine; Referring Provider Obstetrics & Gynecology; Visit Provider Obstetrics & Gynecology
DX: O16.9 Unspecified maternal hypertension, unspecified trimester (principal); Z3A.00 Weeks of gestation of pregnancy not specified
CPT/HCPCS: 36415; 59025; 59050; 82565; 82570; 84156; 84450; 84460; 84550; 85027; 85610; 85730; 99218; G0378

== ENCOUNTER 2018-09-19 09:55 | Inpatient (IN) | payer BC, SELFPAY ==
[2018-06-27 09:01] VITALS: BMI 23.8
[2018-09-19 09:29] VITALS: BMI 27.8
[2018-09-19] MEDS: Lactated Ringers 1,000 ML 999 ML IV (10:20)
[2018-09-19 10:35] VITALS: BMI 27.7
[2018-09-19 10:44] LABS: Absolute Lymphocyte Count 1.66 X10^3/uL (0.83-4.51); Absolute Neutrophil Count 9.1 X10^3/uL (2.0-7.7); Basophil# 0.04 X10^3/uL; Basophil% 0.3 % (0-1); Eosinophil# 0.02 X10^3/uL; Eosinophils% 0.2 % (0-5); Hematocrit 39.3 % (37-47); Hemoglobin 13.5 g/dL (12.0-15.0); Lymphocyte # 1.66 X10^3/ul (4.0); Mean Corp Hgb Conc 34.4 g/dL (32-36); Mean Corpuscular Hgb 30.5 pg (27.0-32.0); Mean Corpuscular Volume 88.9 fL (81-99); Mean Platelet Vol. 10.6 fl (6.2-12.0); Monocyte# 0.96 X10^3/uL; Monocyte% 8.1 % (0-10); NRBC Flagged by Analyzer 0 % (0-5); Neutrophil # 9.13 X10^3/uL (2.7-7.7); Neutrophil % 76.7 % (47-70); Platelet Count 202 K/mm3 (150-450); RBC Distribution Width SD 42.4 fl (35.1-43.9); Red Blood Count 4.42 M/mm3 (4.2-5.4); White Blood Count 11.9 K/mm3 (4.4-11.0)
[2018-09-19 10:45] LABS: International Normalized Ratio 0.9
[2018-09-19 10:46] LABS: Partial Thromboplast Time 26.2 Seconds (24.1-36.2)
[2018-09-19 10:48] LABS: AST(SGOT) 19 U/L (15-37); Alanine Aminotransfer ALT/SGPT 20 U/L (13-56); Creatinine, Serum 0.64 mg/dL (0.55-1.02); EST Glomerular Filtration Rate 119 mL/min (>60); Est Glom Filt Rate - Afr Amer 144 mL/min (>60); Estimated Creatinine Clearance 106.28 ml/min; Uric Acid 4.4 mg/dL (2.6-6.0)
[2018-09-19] MEDS: fentaNYL-bupivacaine (epidural) 100 ML BAG EPIDURAL ×2 (11:10→15:36)
[2018-09-19] MEDS: Lactated Ringers 1,000 ML 50 ML IV ×2 (11:10→16:12)
[2018-09-19 13:46] LABS: Protein, Urine (Random) < 6.0 mg/dL (<11.9)
[2018-09-19] MEDS: Oxytocin 30 units/NS 500 ml 30 UNITS/500 ML IV.SOLN IV (16:18)
--- NOTE | 2018-09-19 17:22 | HP.PCM_ITS ---
- Problem List (1) Active labor at term Status: Acute History and Physical Date of Admission: 09/19/18 Intake Vital Signs 09/19/18 Body Mass Index (BMI) 27.8 09/19/18 Height 5 ft 2 in 09/19/18 Weight: 152 lb 09/19/18 Body Mass Index (BMI) 27.8 Intake Visit Reasons: BP CHECK Chief Complaint: est ob, BP check Eye Glass Frame Polisher Required: No Is patient in pain?: No Allergies aloe vera [From Vagisil] Adverse Reaction (Verified 09/19/18 09:28) swollen, burning benzocaine [From Vagisil] Adverse Reaction (Verified 09/19/18 09:28) swollen, burning mineral oil [From Vagisil] Adverse Reaction (Verified 09/19/18 09:28) swollen, burning resorcinol [From Vagisil] Adverse Reaction (Verified 09/19/18 09:28) swollen, burning starch [From Vagisil] Adverse Reaction (Verified 09/19/18 09:28) swollen, burning vitamin E (d-alpha tocopherol) [From Vagisil] Adverse Reaction (Verified 09/19/18 09:28) swollen, burning vitamins A and D [From Vagisil] Adverse Reaction (Verified 09/19/18 09:28) swollen, burning Medications vitamin,calcium,hoimivbq-bmfc-yxphn acid tablet 1 tab PO DAILY 01/31/18 [History Confirmed 09/19/18] Last Menstral Period: 12/12/17 Zika: Zika virus screening: Negative : No PFSH PFSH Family History Grandmother Diabetes Grandfather Cancer Leukemia Social History (Updated 09/19/18 @ 09:42 by Skyla Sheets MD) Smoking Status: Never smoker alcohol intake: never details: social substance use type: does not use caffeine: No what type of physical activity do you participate in: none seatbelt use: always do you feel safe at home: Yes additional social history: [employer] Patient works at [employer] Pregancy History 1 Elective abortions Hx Para Spontaneous abortions Hx # Term Pregnancies Ectopic pregnancies Hx # Pregnancies Multiple births # of living children HPI BP CHECK : Details: MARI GRAYSON is a 27 year old who presents for ob visit with contractions regular and increased discharge and spotting, now 3-4 cm dilated and 90 and -1. she will be admitted to l and d in labor OB Visit PROSPER Calculator Estimated Delivery Date Method Current WG Current Estimate 09/18/18 LMP (Certain) 40w 1d Expected Delivery Route/Plan Specific Issue/Plans flu vaccine: declines tdap vaccine: given rhogam: na LARC form signed: yes labor support person: norbertdana- [facility] pain management: epidural cut cord/dad catch: yes : yes PP control planned: unsure special requests: [] Initial Weight: 125 lb Date EGA Weight BP Urine Prot Glucose FHR FuHt Pres Mov CTX Dilation Effaced St Visit Note 03/03/18 11w 4d 126 lb (+16 oz) 128/80 168 Work in for tender lump inner buttocks-confirm occlusion cyst. 03/14/18 13w 1d 124 lb (-16 oz) 126/70 Negative Negative 160 no vb cramping 04/11/18 17w 1d 128 lb (+3 lb) 120/82 Negative Negative 160 no vb lof no cramping 05/09/18 21w 1d 133 lb (+8 lb) 120/70 150 no vb cramping reviewed us results 06/05/18 25w 0d 136 lb 6 oz (+11 lb 6 oz) 118/74 Negative Negative 145 no vb lof good fm no regular ctx 06/27/18 28w 1d 138 lb (+13 lb) 108/80 Negative Negative 140 28 Active absent no vb lof good fm n oregular ctx cbc gct 07/11/18 30w 1d 143 lb 2 oz (+18 lb 2 oz) 118/82 Negative Negative 140 31 Active larc signed no vb lof good fm no regular ctx 07/24/18 32w 0d 142 lb 8 oz (+17 lb 8 oz) 118/82 Negative Negative 140 33 Active no vb lof good fm no regular ctx 08/05/18 33w 5d 144 lb (+19 lb) 120/76 140 35 Active absent no vb lof good f mn oregular ctx 08/19/18 35w 5d 149 lb 6 oz (+24 lb 6 oz) 118/72 Negative Negative 152 36 Active absent No VB, LOF. Doing well 08/26/18 36w 5d 152 lb 2 oz (+27 lb 2 oz) 124/74 Negative Negative 145 38 Cephalic Active absent no vb lof good fm no regular ctx 09/02/18 37w 5d 150 lb (+25 lb) 120/70 Negative Negative 150 38 Cephalic Active absent 1.5 Yes -3 no vb lof good fm oregular ctx 09/09/18 38w 5d 151 lb (+26 lb) 124/80 Negative Negative 154 39 Cephalic Active occasional 1.5 -3 Rare CTX, no VB, LOF. Good FM 09/16/18 39w 5d 152 lb (+27 lb) 120/90 Negative Negative 140 39 Cephalic Active absent 1.5 no vb lof good fm no regualr ctx, borderline elevated bps recommend evaluation on l and d for preeclampsia 09/19/18 40w 1d 152 lb (+27 lb) Visit Notes Visit Date: 09/19/18 ??No visit notes to display Visit Date: 09/16/18 ??no vb lof good fm no regualr ctx, borderline elevated bps recommend evaluation on l and d for preeclampsia ??Skyla Sheets MD on 09/16/18 Visit Date: 09/09/18 ??Rare CTX, no VB, LOF. Good FM ??NIYAH AvilaC on 09/09/18 Visit Date: 09/02/18 ??no vb lof good fm oregular ctx ??Skyla Sheets MD on 09/02/18 Visit Date: 08/26/18 ??no vb lof good fm no regular ctx ??Skyla Sheets MD on 08/26/18 Visit Date: 08/19/18 ??No VB, LOF. Doing well ??NIYAH AvilaC on 08/19/18 Visit Date: 08/05/18 ??no vb lof good f mn oregular ctx ??Skyla Sheets MD on 08/05/18 Visit Date: 07/24/18 ??no vb lof good fm no regular ctx ??Skyla Sheets MD on 07/24/18 Visit Date: 07/11/18 ??larc signed no vb lof good fm no regular ctx ??Skyla Sheets MD on 07/11/18 Visit Date: 06/27/18 ??no vb lof good fm n oregular ctx cbc gct ??Skyla Sheets MD on 06/27/18 Visit Date: 06/05/18 ??no vb lof good fm no regular ctx ??Skyla Sheets MD on 06/05/18 Visit Date: 05/09/18 ??no vb cramping reviewed us results ??Skyla Sheets MD on 05/09/18 Visit Date: 04/11/18 ??no vb lof no cramping ??Skyla Sheets MD on 04/11/18 Visit Date: 03/14/18 ??no vb cramping ??Skyla Sheets MD on 03/17/18 Visit Date: 03/03/18 ??Work in for tender lump inner buttocks-confirm occlusion cyst. ??LAKIA Avila on 03/03/18 ACOG First Trimester First Trimester: Desire for , Alcohol, Tobacco Cessation, Illicit/Rec reational Drug/Substance Use, Intimate Partner Violence, Barriers to care, Unstable Housing, Communication Barriers, Environmental/Work Hazards, Anticipated Course of Care, Toxoplasmosis Precations, Use of Any medications, Sexual activity, Exercise, Dental Care, Sauna/Hot tub use, Seat Belt use, Childbirth classes/Hospital facilities, , Travel, Indications for US and Screening for Aneuploidy Second Trimester Second Trimester: Signs and Symptoms of Labor, Selecting a care provider, Reproductive Life Planning, Care Planning, Tobacco Cessation, Depression/Anxiety and Intimate Partner Violence Third Trimester Third Trimester: Pain Management Plans, Labor support person(s), Immediate Larc, Movement Monitoring and Infant Feeding Yes ; discussed Trial of Labor after Counseling or discussed Circumcision preference Diagnostics Diagnostics Labs Hct 38.7 % (37-47) 09/16/18 Hgb 13.7 g/dL (12.0-15.0) 09/16/18 Glucose 1 Hr 50 gm 108 mg/dL (70-140) 06/27/18 Details: HIV: Urine Culture: Sequential Screen: NIPT Screen: ROS Const Reports system reviewed and no additional complaints, except as docu Card Reports system reviewed and no additional complaints, except as docu Resp Reports system reviewed and no additional complaints, except as docu GI Reports system reviewed and no additional complaints, except as docu, Reports nausea Reports system reviewed and no additional complaints, except as docu Musc Reports system reviewed and no additional complaints, except as docu Exam Const General: cooperative, healthy appearing, comfortable, anxious HENMT Head: normal to inspection Nose: external nose normal Face and sinus: normal facial exam Neck Neck: normal visual inspection, full ROM, no lymphadenopathy Thyroid: thyroid normal Chest Chest palpation & inspection: normal inspection of the chest Resp Effort & Inspection: normal respiratory effort GI Inspection: normal to inspection Palpation: soft, other (gravid uterus) Other: vertex and appropriate size for gestational age Other: Cervical Exam: Extrem General: pedal edema Assessment & Plan Problems 1. 40 weeks gestation of Z3A.40 2. Encounter for supervision of normal first in third trimester Z34.03 Plan active labor admit epidural PRN check preeclampsia panel Orders Orders: POC Urinalysis 2 Dip (Clinic) Today Coding Level of Care Code OB Routine Diagnoses 40 weeks gestation of Z3A.40 ??Weeks of gestation: 40 weeks Encounter for supervision of normal first in third trimester Z34.03 ??Normal : normal first ??Trimester: third trimester
--- NOTE | 2018-09-19 17:23 | PCM.OPRPT ---
Problem List (1) Active labor at term Status: Acute Vaginal Delivery Maternal Presentation: Active Labor ial term Amniotic Fluid Description: Clear Date of Procedure: 09/19/18 Pre-Operative Diagnosis: ial Post-Operative Diagnosis: same Surgery/ Procedure Performed: Spontaneous Vaginal Delivery Type of Anesthesia: Epidural Placental Delivery Description: Spontaneous Placenta Disposition: [facility] Cord Vessel Description: 3 Vessels Multi Select Codes - Urinary/Genital Urinary/Genital CPT Codes: 77318 Vaginal Delivery global pkg
[2018-09-19] MEDS: Oxytocin 30 units/NS 500 ml 30 UNITS/500 ML IV.SOLN 334 UNITS IV (17:59)
[2018-09-19] MEDS: Oxytocin 30 units/NS 500 ml 30 UNITS/500 ML IV.SOLN 167 UNITS IV (18:29)
--- NOTE | 2018-09-19 22:03 | NURSING ---
epidural catheter removed, blue tip intact.
[2018-09-19 23:40] VITALS: BP 115/69; PULSE 80; RESP 16; TEMP 37.4
[2018-09-20 03:30] VITALS: BP 118/72; PULSE 75; RESP 16; TEMP 37
[2018-09-20] MEDS: Dibucaine 30 GM Tube 1 APPLIC TOPICAL (03:42)
[2018-09-20] MEDS: Naproxen 250 MG Tablet 500 MG PO ×3 (03:42→19:43)
--- NOTE | 2018-09-20 06:57 | PN.OBGYN_ITS ---
Patient Problems: Active and Suspected Problems (Last Reviewed 09/19/18 @ 09:35 by Maame William) Active labor at term (Acute) Subjective: doing well no complaints pain controlled no CP SOB N V ambulating well tolerating po lochia moderate, going well - Physical Exam General: Alert, Oriented x3 Vital Signs Temp Pulse Resp BP 98.6 F 75 16 118/72 09/20/18 03:30 09/20/18 03:30 09/20/18 03:30 09/20/18 03:30 Weight: 151 lb 7.321 oz Body Mass Index (BMI) 27.7 Intake and Output for Last 24 Hours 09/18/18 09/19/18 09/20/18 23:59 23:59 23:59 Intake Total 2913 / 2913 Output Total 1400 / 1400 1400 / 1400 Balance 1513 / 1513 -1400 / -1400 Laboratory Tests Past 24 Hrs 09/19/18 09/19/18 09/19/18 10:20 10:20 10:20 WBC Cancelled Corrected WBC Cancelled RBC Cancelled Hgb Cancelled Hct Cancelled MCV Cancelled MCH Cancelled MCHC Cancelled RDW Std Deviation Cancelled RDW Coeff of Shruthi Cancelled Plt Count Cancelled MPV Cancelled Immature Gran % (Auto) Neut % (Auto) Lymph % (Auto) [place] % (Auto) Eos % (Auto) Baso % (Auto) Absolute Neuts (auto) Absolute Lymphs (auto) Nucleated RBC % Diff Path Review Cancelled PT 12.0 INR 0.9 APTT 26.2 Creatinine 0.64 Estim Creat Clear Calc 106.28 Est GFR (MDRD) Af Amer 144 Est GFR (MDRD) Non-Af 119 Uric Acid 4.4 AST 19 ALT 20 U Random Total Protein Urine Creatinine Protein/Creatinin Ratio Blood Type Antibody Screen 09/19/18 09/19/18 09/19/18 10:20 10:20 13:20 WBC 11.9 H Corrected WBC RBC 4.42 Hgb 13.5 Hct 39.3 MCV 88.9 MCH 30.5 MCHC 34.4 RDW Std Deviation 42.4 RDW Coeff of Shruthi 13.0 Plt Count 202 MPV 10.6 Immature Gran % (Auto) 0.700 Neut % (Auto) 76.7 H Lymph % (Auto) 14.0 L [place] % (Auto) 8.1 Eos % (Auto) 0.2 Baso % (Auto) 0.3 Absolute Neuts (auto) 9.1 H Absolute Lymphs (auto) 1.66 Nucleated RBC % 0 Diff Path Review PT INR APTT Creatinine Estim Creat Clear Calc Est GFR (MDRD) Af Amer Est GFR (MDRD) Non-Af Uric Acid AST ALT U Random Total Protein < 6.0 Urine Creatinine 21.30 Protein/Creatinin Ratio TNP Blood Type O POSITIVE Antibody Screen NEGATIVE Medical Necessity - Tobacco Use Smoking Status: Never smoker Assessment/Plan All Active Problems (Last Reviewed 09/19/18 @ 09:35 by Maame William) Active labor at term (Acute) (Acute) Supervision of normal (Acute) Subchorionic hemorrhage (Resolved) s/p PPD # 1 1. routine post delivery care 2. breast feeding- support given 3. rh positive 4. rubella immune
[2018-09-20 08:46] VITALS: BP 130/70; PULSE 97; RESP 16; TEMP 36.6; O2SAT 97
[2018-09-20 12:22] VITALS: BP 109/74; PULSE 83; RESP 16; TEMP 37.2; O2SAT 98
[2018-09-20 17:15] VITALS: BP 138/78; PULSE 84; RESP 16; TEMP 37.1; O2SAT 97
[2018-09-20 19:50] VITALS: BP 116/74; PULSE 84; RESP 16; TEMP 36.8
[2018-09-21 01:00] VITALS: BP 115/75; PULSE 68; RESP 20; TEMP 36.8
--- NOTE | 2018-09-21 02:36 | DCINST_ITS ---
Discharge Diet: No Restrictions Discharge Activity: Return to Normal Activity, May not drive while taking narcotic pain medications., May Shower May resume sexual activity in: 4-6 weeks Call your doctor if your incision/area has: Continuous Slow Oozing, Sudden Increased Bleeding, Increased Pain/ Swelling, Increased Redness, Foul Smelling Discharge Additional Instructions: If you experience any of the following, contact your healthcare provider. * Bleeding that soaks a pad every hour for 2 hours * Fever 100.4 or higher * Unrelieved incision or abdominal pain * Swelling, redness, discharge or bleeding from your incision or episiotomy site * Your incision begins to separate * Problems urinating (including inability to urinate or burning while urinating). * Visual changes * Severe headache * Flu-like symptoms * Pain or redness in one of both of your breasts * Pain, warmth, tenderness or swelling in your legs, especially the calf area * Frequent nausea and vomiting * Symptoms of depression or anxiety If you experience any of the following, call 911 or go to the nearest Emergency Room. * Chest pain * Problems breathing * Seizure activity * Partial or complete paralysis of a body part, slurred speech, weakness or drooping of the face, or a sudden inability to walk or hold your balance Allergies/Adverse Reactions: Allergies aloe vera [From Vagisil] Adverse Reaction (Verified 09/19/18 09:28) swollen, burning benzocaine [From Vagisil] Adverse Reaction (Verified 09/19/18:28) swollen, burning mineral oil [From Vagisil] Adverse Reaction (Verified 09/19/18:28) swollen, burning resorcinol [From Vagisil] Adverse Reaction (Verified 09/19/18:28) swollen, burning starch [From Vagisil] Adverse Reaction (Verified 09/19/18:28) swollen, burning vitamin E (d-alpha tocopherol) [From Vagisil] Adverse Reaction (Verified 09/19/18:28) swollen, burning vitamins A and D [From Vagisil] Adverse Reaction (Verified 09/19/18:28) swollen, burning Medications to take at Discharge vitamin,calcium,wubscfjx-dwiq-pdfwm acid tablet 1 tab PO DAILY 01/31/18 Please Follow Up With: Skyla Sheets MD - [phone] When: Call to make an appointment with your doctor in 6 weeks. If you had elevated Blood pressure or 4th degree laceration you will need to be seen in 2 weeks. Primary Care Physician: Primo Ring MD [Primary Care Provider] - Test Results: Test results from this visit will be discussed in further detail at your follow- up appointment, if applicable.
[2018-09-21 09:43] VITALS: BP 116/77; PULSE 89; RESP 16; TEMP 36.9
[2018-09-21] MEDS: Naproxen 250 MG Tablet 500 MG PO (10:06)
--- NOTE | 2018-09-21 11:38 | PCM.PN.OB ---
Patient Problems: Active and Suspected Problems (Last Reviewed 09/19/18 @ 09:35 by Maame William) Active labor at term (Acute) Subjective: doing well no complaints pain controlled no CP SOB N V ambulating well tolerating po lochia moderate, going well - Physical Exam General: Alert, Oriented x3 Vital Signs Temp Pulse Resp BP Pulse Ox 98.4 F 89 16 116/77 97 09/21/18 09:43 09/21/18 09:43 09/21/18 09:43 09/21/18 09:43 09/20/18 17:15 Oxygen Delivery Method Room Air Weight: 151 lb 7.321 oz Body Mass Index (BMI) 27.7 Intake and Output for Last 24 Hours 09/19/18 09/20/18 09/21/18 23:59 23:59 23:59 Intake Total 2913 / 2913 Output Total 1400 / 1400 1400 / 1400 Balance 1513 / 1513 -1400 / -1400 Medical Necessity - Tobacco Use Smoking Status: Never smoker Assessment/Plan All Active Problems (Last Reviewed 09/19/18 @ 09:35 by Maame William) Active labor at term (Acute) (Acute) Supervision of normal (Acute) Subchorionic hemorrhage (Resolved) s/p PPD # 1 1. routine post delivery care 2. breast feeding- support given 3. rh positive 4. rubella immune
[2018-09-21 13:48] VITALS: BP 124/80; PULSE 76; RESP 16; TEMP 36.9
--- NOTE | 2018-09-25 18:33 | NURSING ---
Mother doing well, switched to formula . She really like Alain[facility] Murray for labor and Dr Palmer
== END 2018-09-21 14:30 | disposition home or self-care (01) | DRG 807 ==
PROVIDERS: Admitting Provider Obstetrics & Gynecology; Family Provider Family Medicine; PCP Family Medicine; Referring Provider Obstetrics & Gynecology; Visit Provider Obstetrics & Gynecology
DX: O13.3 Gestational [pregnancy-induced] hypertension without significant proteinuria, third trimester (principal); Z37.0 Single live birth; Z3A.40 40 weeks gestation of pregnancy
CPT/HCPCS: 59025; 59050; 82565; 82570; 84156; 84450; 84460; 84550; 85025; 85610; 85730; 86850; 86900; 99218; J7120; G0378

== ENCOUNTER → 2018-11-03 16:19 | Outpatient (CLI) | payer BC, SELFPAY ==
[2018-11-03 13:36] VITALS: BMI 27.7
[2018-11-06 14:59] LABS: HPV Reflexed? NOT INDICATED
== END ==
PROVIDERS: Family Provider Family Medicine; PCP Family Medicine; Referring Provider Obstetrics & Gynecology; Visit Provider Obstetrics & Gynecology
DX: Z12.4 Encounter for screening for malignant neoplasm of cervix (principal)
CPT/HCPCS: 88175; G0145

== ENCOUNTER → 2019-03-23 13:38 | Outpatient (CLI) | payer BC, SELFPAY ==
[2019-03-23 11:47] VITALS: BMI 27.7
== END ==
PROVIDERS: PCP Family Medicine; Referring Provider Nurse Practitioner Women's Health; Visit Provider Nurse Practitioner Women's Health
DX: N89.8 Other specified noninflammatory disorders of vagina (principal)
CPT/HCPCS: 87070; 87086; 87088; 87205

== ENCOUNTER → 2020-04-25 12:18 | Outpatient (CLI) | payer BC, SELFPAY ==
[2020-04-21 13:03] VITALS: BMI 21.2
[2020-04-25 13:24] LABS: Thyroid Stim Hormone (TSH) 1.61 uIU/mL (0.358-3.74)
== END ==
PROVIDERS: PCP Family Medicine; Referring Provider Obstetrics & Gynecology; Visit Provider Obstetrics & Gynecology
DX: R63.4 Abnormal weight loss (principal)
CPT/HCPCS: 36415; 84443

== ENCOUNTER → 2020-10-07 12:52 | Outpatient (CLI) | payer BC, SELFPAY ==
[2020-10-07 13:19] LABS: Amphetamine Urine VISTA NEGATIVE (<1000 ng/mL); Barbiturate Urine VISTA NEGATIVE (< 200 ng/mL); Benzodiazepine Urine VISTA NEGATIVE (< 200 ng/mL); Cocaine Urine VISTA NEGATIVE (< 300 ng/mL); Ecstacy Urine VISTA NEGATIVE (< 500 ng/mL); Methadone Urine VISTA NEGATIVE (< 300 ng/mL); PCP Urine VISTA NEGATIVE (< 25 ng/mL); THC Urine VISTA NEGATIVE (< 50 ng/mL); Vista UDS pH Range 6
[2020-10-10 03:07] LABS: Chlamydia By Nucleic Acid AMP Negative (Negative)
[2020-10-10 13:05] LABS: Gonococcus By Nucleic Acid AMP Negative (Negative)
[2020-10-11 22:29] LABS: HPV Reflexed? NOT INDICATED
== END ==
PROVIDERS: Visit Provider Obstetrics & Gynecology
DX: Z34.80 Encounter for supervision of other normal pregnancy, unspecified trimester (principal)
CPT/HCPCS: 80307; 87086; 87088; 87491; 87591; 88175; G0145

== ENCOUNTER → 2020-10-24 12:28 | Outpatient (CLI) | payer BC, SELFPAY ==
[2020-10-24 13:37] LABS: NATERA MAILED SPECIMEN
[2020-10-24 13:56] LABS: Absolute Lymphocyte Count 1.83 X10^3/uL (0.83-4.51); Absolute Neutrophil Count 6.7 X10^3/uL (2.0-7.7); Basophil# 0.05 X10^3/uL; Basophil% 0.5 % (0-1); Eosinophil# 0.14 X10^3/uL; Eosinophils% 1.5 % (0-5); Hematocrit 36.9 % (37-47); Hemoglobin 12.6 g/dL (12.0-15.0); Lymphocyte # 1.83 X10^3/ul (0.83-4.51); Lymphocyte % 19.3 % (19-41); Mean Corp Hgb Conc 34.1 g/dL (32-36); Mean Corpuscular Hgb 29.7 pg (27.0-32.0); Mean Platelet Vol. 10.5 fl (6.2-12.0); Monocyte# 0.75 X10^3/uL; Monocyte% 7.9 % (0-10); NRBC Flagged by Analyzer 0 % (0-5); Neutrophil # 6.68 X10^3/uL (2.7-7.7); Neutrophil % 70.5 % (47-70); Platelet Count 242 K/mm3 (150-450); RBC Distribution Width CV 13.2 % (11.6-14.6); RBC Distribution Width SD 41.7 fl (35.1-43.9); Red Blood Count 4.24 M/mm3 (4.2-5.4); White Blood Count 9.5 K/mm3 (4.4-11.0)
[2020-10-24 15:14] LABS: HIV - WCH Non-Reactive (Nonreactive); Hepatitis B Surface Antigen Non-Reactive (Nonreactive); Hepatitis C Antibody Non-Reactive (Nonreactive); Rubella IgG Reactive (Nonreactive); Syphilis Antibodies Non-reactive
== END ==
PROVIDERS: PCP Family Medicine; Visit Provider Obstetrics & Gynecology
DX: Z34.80 Encounter for supervision of other normal pregnancy, unspecified trimester (principal)
CPT/HCPCS: 36415; 85025; 86703; 86762; 86780; 86803; 86850; 86900; 86901; 87340

== ENCOUNTER 2021-02-13 11:54 | Outpatient (CLI) | payer BC, SELFPAY ==
[2021-02-13 13:01] LABS: Absolute Lymphocyte Count 1.97 X10^3/uL (0.83-4.51); Absolute Neutrophil Count 8.6 X10^3/uL (2.0-7.7); Basophil# 0.04 X10^3/uL; Basophil% 0.3 % (0-1); Eosinophil# 0.04 X10^3/uL; Eosinophils% 0.3 % (0-5); Hematocrit 34.6 % (37-47); Hemoglobin 11.9 g/dL (12.0-15.0); Lymphocyte # 1.97 X10^3/ul (0.83-4.51); Lymphocyte % 16.9 % (19-41); Mean Corp Hgb Conc 34.4 g/dL (32-36); Mean Corpuscular Volume 90.1 fL (81-99); Mean Platelet Vol. 10.3 fl (6.2-12.0); Monocyte# 0.87 X10^3/uL; Monocyte% 7.5 % (0-10); NRBC Flagged by Analyzer 0 % (0-5); Neutrophil % 73.7 % (47-70); Platelet Count 219 K/mm3 (150-450); RBC Distribution Width CV 13.8 % (11.6-14.6); Red Blood Count 3.84 M/mm3 (4.2-5.4); White Blood Count 11.7 K/mm3 (4.4-11.0)
[2021-02-13 13:16] LABS: Glucose Challenge Gest 1H 50g 129 mg/dL (70-140)
== END 2021-02-13 23:59 | disposition short-term general hospital (02) ==
LOC: LAB 11:55
PROVIDERS: PCP Family Medicine; Referring Provider Obstetrics & Gynecology; Visit Provider Obstetrics & Gynecology
DX: Z13.1 Encounter for screening for diabetes mellitus (principal)
CPT/HCPCS: 36415; 82950; 85025

== ENCOUNTER 2021-04-24 09:53 | Outpatient (CLI) | payer BC, SELFPAY | END 2021-04-24 23:59 | disposition home or self-care (01) | LOC: LABSPEC 04-25 09:53 | PROVIDERS: PCP Family Medicine; Visit Provider Obstetrics & Gynecology | DX: Z34.80 Encounter for supervision of other normal pregnancy, unspecified trimester (principal) | CPT/HCPCS: 87081 ==

== ENCOUNTER 2021-05-11 04:30 | Inpatient (IN) | payer BC, SELFPAY ==
[2021-05-11] VITALS (47 sets, daily range): BP systolic 102–183; BP diastolic 66–87; PULSE 65–214; RESP 16–18; TEMP 36.3–37.6; O2SAT 89–100; BMI 27.8
[2021-05-11] MEDS: Lactated Ringers 1,000 ML 50 ML IV (05:00)
[2021-05-11] MEDS: Lactated Ringers 500 ML 999 ML IV (05:04)
[2021-05-11 05:08] LABS: Absolute Neutrophil Count 7.2 X10^3/uL (2.0-7.7); Basophil# 0.05 X10^3/uL; Basophil% 0.5 % (0-1); Eosinophil# 0.05 X10^3/uL; Eosinophils% 0.5 % (0-5); Hematocrit 35.1 % (37-47); Hemoglobin 12.4 g/dL (12.0-15.0); Mean Corp Hgb Conc 35.3 g/dL (32-36); Mean Corpuscular Hgb 31.2 pg (27.0-32.0); Mean Corpuscular Volume 88.2 fL (81-99); Mean Platelet Vol. 10.6 fl (6.2-12.0); Monocyte# 0.95 X10^3/uL; Monocyte% 9.5 % (0-10); NRBC Flagged by Analyzer 0 % (0-5); Neutrophil # 7.19 X10^3/uL (2.7-7.7); Platelet Count 199 K/mm3 (150-450); RBC Distribution Width CV 13.3 % (11.6-14.6); RBC Distribution Width SD 43.5 fl (35.1-43.9); Red Blood Count 3.98 M/mm3 (4.2-5.4)
[2021-05-11] MEDS: fentaNYL-bupivacaine (epidural) 100 ML BAG EPIDURAL (06:30)
[2021-05-11] MEDS: Oxytocin 30 units/NS 500 ml 30 UNITS/500 ML IV.SOLN IV (07:56)
--- NOTE | 2021-05-11 08:44 | HP.PCM.OB_ITS ---
HPI - General General Date of Admission: 05/11/21 HPI Narrative MARI GRAYSON, is a 30 y/o @ 38 weeks 6 days who presents to L&D with loss of fluid and contractions. She was found to be 3 cm dilated and 50% effaced Maternal Data Information PROSPER Calculator Estimated Delivery Date Method Current WG Current Estimate 05/19/21 LMP (Certain) 38w 6d PFSH PFSH Medical History COVID-19 vaccine administered Home Medications vitamin #56-iron 35 mg and 5 mg-folic acid 1 mg-dha capsule 1 cap PO DAILY 01/23/21 [History Last Taken 05/07/21 08:00] Allergy/AdvReac Type Severity Reaction Status Date / Time aloe vera [From Vagisil] AdvReac swollen, Verified 05/11/21 05:11 burning benzocaine [From Vagisil] AdvReac swollen, Verified 05/11/21 05:11 burning mineral oil [From Vagisil] AdvReac swollen, Verified 05/11/21 05:11 burning resorcinol [From Vagisil] AdvReac swollen, Verified 05/11/21 05:11 burning starch [From Vagisil] AdvReac swollen, Verified 05/11/21 05:11 burning vitamin E (d-alpha AdvReac swollen, Verified 05/11/21 05:11 tocopherol) burning [From Vagisil] vitamins A and D AdvReac swollen, Verified 05/11/21 05:11 [From Vagisil] burning Family History Grandmother Diabetes Grandfather Cancer Leukemia Social History Smoking Status: Never smoker alcohol intake: never details: social substance use type: does not use caffeine: No what type of physical activity do you participate in: none seatbelt use: always do you feel safe at home: Yes additional social history: Norbert- [employer]ating Patient works at [employer] History 2 Elective abortions Hx Para 1 Spontaneous abortions Hx # Term Pregnancies Ectopic pregnancies Hx # Pregnancies Multiple births # of living children Past Pregnancies Del. Date Name GA/Weeks Outcome Route Bth Weight Gen Labor Lgth Anesthesia Del Locatn Provider FOB 09/19/18 Kapil 40 live - full term 7lbs 2oz Female less than 10 hours epidural [facility] Dr. Sudeep Newton Delivery Date: 09/19/18 maternal HTN Marissa Palmer Visit Details Expected Delivery Route/Plan Labor Preferences- labor support person: norbert labor intervention preferences: [] pain management options preferred: [] cut cord/dad catch: [] : [] PP control planned: [] discussed possible routes of delivery and associated risks: [] special requests: [] Plans Covid status: vaccinated november Flu vaccine: declined Tdap vaccine: GIVEN Rhogam: na LARC form signed: declined movement and labor precautions reviewed. Problem list reviewed and updated with the most current plan of care details and appropriate orders placed. Relevant counseling for the gestational age provided. Continue routine care and follow up unless otherwise noted in visit notes/problem list details OB Flowsheet Initial Weight: 119 lb Date -?-?-?-?-?-?-?-?-?-?-?-?- EGA Weight BP Urine Prot -?-?-?-?-?-?-?-?-?-?-?-?- Glucose FHR FuHt Pres Dilation -?-?-?-?-?-?-?-?-?-?-?-?- Effaced St Visit Note 10/07/20 -?-?-?-?-?-?-?-?-?-?-?-?- 8w 0d 119 lb (+0 oz) 110/70 -?-?-?-?-?-?-?-?-?-?-?-?- 170 -?-?-?--?-?-?-?-?-?-?-?-?- SM- no vb crampi ng CRL cons with LMP SM- no vb cramping CRL 1.8 cons with LMP 10/31/20 -?-?-?-?-?-?-?-?-?-?-?-?- 11w 3d 121 lb 2 oz (+2 lb 2 oz) 128/88 Negative -?-?-?-?-?-?-?-?-?-?-?-?- Negative 160 -?-?-?-?-?-?-?-?-?-?-?-?- GP - no cramping or bleeding. It's a boy! Anatomy scan ordered. 11/28/20 -?-?-?-?-?-?-?-?-?-?-?-?- 15w 3d 128 lb (+9 lb) 126/78 Negative -?-?-?-?-?-?-?-?-?-?-?-?- Negative 149 -?-?-?-?-?-?-?-?-?-?-?-?- MH-NO VB, LOF. F eeling some movement. US scheduled 12/1612/26/20 -?-?-?-?-?-?-?-?-?-?-?-?- 19w 3d 134 lb 8 oz (+15 lb 8 oz) 130/88 Negative -?-?-?-?-?-?-?-?-?-?-?-?- Negative 145 -?-?-?-?-?-?-?-?-?-?-?-?- SM- no vb lof so me fm 01/23/21 -?-?-?-?-?-?-?-?-?-?-?-?- 23w 3d 138 lb (+19 lb) 120/78 Negative -?-?-?-?-?-?-?-?-?-?-?-?- Negative 140 23 -?-?-?--?-?-?-?-?-?-?-?-?- SM- no vb lof go od fm no regular ctx 02/23/21 -?-?-?-?-?-?-?-?-?-?-?-?- 27w 6d 143 lb 4 oz (+24 lb 4 oz) 110/80 Negative -?-?-?-?-?-?-?-?-?-?-?-?- Negative 133 28 -?-?-?-?-?-?-?-?-?-?-?-?- JV- no lof, vagi nal bleeding, or dec fm. fully vaccinated against covid. 03/06/21 -?-?-?-?-?-?-?-?-?-?-?-?- 29w 3d 146 lb (+27 lb) 120/86 -?-?-?-?-?-?-?-?-?-?-?-?- 135 30 Cephalic -?-?-?-?-?-?-?--?-?-?-?-?- SM- no vb lof go od fm no regular ctx 03/20/21 -?-?-?-?-?-?-?-?-?-?-?-?- 31w 3d 146 lb (+27 lb) 132/82 Negative -?-?-?-?-?-?-?-?-?-?-?-?- Negative 140 31 -?-?-?-?-?-?-?-?-?-?-?-?- SM- no vb lof go od fm no reular ctx 04/03/21 -?-?-?-?-?-?-?-?-?-?-?-?- 33w 3d 151 lb (+32 lb) 120/80 Negative -?-?-?-?-?-?-?-?-?-?-?-?- Negative 130 34 -?-?-?-?-?-?-?-?-?-?-?-?- Sm- no vb lof go od fm no regular ctx 04/17/21 -?-?-?-?-?-?-?-?-?-?-?-?- 35w 3d 152 lb (+33 lb) 100/82 Negative -?-?-?-?-?-?-?-?-?-?-?-?- Negative 130 36 Cephalic -?-?-?-?-?-?-?-?-?-?-?-?- Sm- no vb lof go od fm no regular ctx 04/24/21 -?-?-?-?-?-?-?-?-?-?-?-?- 36w 3d 151 lb (+32 lb) 122/80 -?-?-?-?-?-?-?-?-?-?-?-?- 130 37 Cephalic 1 -?-?-?-?-?-?-?-?-?-?-?-?- 40 -2 SM- no vb lof good fm irregular ctx has had some loose stool 05/01/21 -?-?-?-?-?-?-?-?-?-?-?-?- 37w 3d 153 lb (+34 lb) 120/76 Negative -?-?-?-?-?-?-?-?-?-?-?-?- Negative 144 38 Cephalic -?-?-?-?-?-?-?-?-?-?-?-?- MH-No VB, LOF. R are BH. Declined internal exam. 05/08/21 -?-?-?-?-?-?-?-?-?-?-?-?- 38w 3d 152 lb (+33 lb) 112/80 -?-?-?-?-?-?-?-?-?-?-?-?- 145 38 Cephalic 3 -?-?-?-?-?-?-?-?-?-?-?-?- 50 -2 SM- no vb lof good fm no regular ctx 05/11/21 -?-?-?-?-?-?-?-?-?-?-?-?- 38w 6d 152 lb 9.6 oz (+33 lb 9.6 oz) 124/77 183/66 115/69 133/83 127/81 138/87 132/76 120/66 118/78 122/76 112/67 110/68 121/73 110/76 107/72 102/72 108/71 104/72 104/72 117/80 132/71 132/71 -?-?-?-?-?-?-?-?-?-?-?-?- -?-?-?-?-?-?-?-?-?-?-?-?- ROS Constitutional Constitutional: Denies change in weight, fatigue, fever(s), headache(s), poor appetite or weakness Eyes Eyes: Denies blurry vision, change in vision, seeing flashes or spots in vision ENT HEENT: Denies dizziness, headache(s), loss taste/smell or sore throat Cardiovascular Cardiovascular: Denies chest pain, dizziness, dyspnea, irregular heart rhythm, leg edema, palpitations, rapid heart rate or vomiting Respiratory/Chest Respiratory/Chest: Denies chest tightness, cough, dyspnea or breast pain Gastrointestinal Gastrointestinal: Denies abdominal pain, anorexia, constipation, cramping, diarrhea, hemorrhoids, vomiting or weight changes Genitourinary Genitourinary: Denies dysuria, flank pain, genital lesions, genital pain, urinary frequency or urinary urgency Musculoskeletal Musculoskeletal: Denies back pain, difficulty walking, joint pain, limited range of motion, muscle cramps or numbness Integumentary Integumentary: Denies lesions or unusual bruising Neurologic Neurologic: Denies abnormal movements, abnormal speech, dizziness, numbness, seizure-like activity or syncope Psychiatric Psychiatric: Denies anxiety, behavioral changes, change in appetite, change in libido, cognitive impairment, confusion, depression, difficulty concentrating, hallucinations or suicidal thoughts Endocrine Endocrinology: Denies excessive sweating, polydipsia or polyuria Hematologic/Lymphatic Hematologic/Lymphatic: Denies easy bleeding, easy bruising or lymphadenopathy Allergic/Immunologic Allergic/Immunologic: Denies itchy eyes, lip swelling, seasonal rhinorrhea, rhinitis, throat swelling, tongue swelling, eczemia, wheezing or asthma Vital Signs Vital Signs Vital Signs: 05/11/21 04:21 05/11/21 04:22 05/11/21 05:46 Temperature 98.8 F Temperature Source Temporal Pulse Rate 96 87 Blood Pressure 124/77 H 183/66 H BP Systolic 124 183 BP Diastolic 77 66 Pulse Ox 96 05/11/21 05:47 05/11/21 06:00 05/11/21 06:05 Temperature 98.3 F Temperature Source Temporal Pulse Rate 80 83 94 Blood Pressure 115/69 133/83 H 127/81 H BP Systolic 115 133 127 BP Diastolic 69 83 81 Pulse Ox 100 99 99 05/11/21 06:10 05/11/21 06:11 05/11/21 06:15 Temperature Temperature Source Pulse Rate 95 101 H Blood Pressure 138/87 H BP Systolic 138 BP Diastolic 87 Pulse Ox 99 98 05/11/21 06:16 05/11/21 06:20 05/11/21 06:22 Temperature Temperature Source Pulse Rate 91 97 86 Blood Pressure 132/76 H 120/66 BP Systolic 132 120 BP Diastolic 76 66 Pulse Ox 98 05/11/21 06:25 05/11/21 06:27 05/11/21 06:30 Temperature Temperature Source Pulse Rate 94 97 96 Blood Pressure 118/78 122/76 H BP Systolic 118 122 BP Diastolic 78 76 Pulse Ox 97 98 05/11/21 06:35 05/11/21 06:40 05/11/21 06:41 Temperature Temperature Source Pulse Rate 88 80 Blood Pressure 112/67 110/68 BP Systolic 112 110 BP Diastolic 67 68 Pulse Ox 98 99 05/11/21 06:45 05/11/21 06:46 05/11/21 06:50 Temperature Temperature Source Pulse Rate 86 89 Blood Pressure 121/73 H BP Systolic 121 BP Diastolic 73 Pulse Ox 98 96 05/11/21 06:52 05/11/21 06:55 05/11/21 06:56 Temperature Temperature Source Pulse Rate 111 H 112 H Blood Pressure 110/76 107/72 BP Systolic 110 107 BP Diastolic 76 72 Pulse Ox 98 05/11/21 07:00 05/11/21 07:01 05/11/21 07:04 Temperature Temperature Source Pulse Rate 99 88 Blood Pressure 102/72 BP Systolic 102 BP Diastolic 72 Pulse Ox 98 93 05/11/21 07:05 05/11/21 07:10 05/11/21 07:15 Temperature 99.1 F Temperature Source Temporal Pulse Rate 87 101 H 108 H Blood Pressure 108/71 104/72 104/72 BP Systolic 108 104 104 BP Diastolic 71 72 72 Pulse Ox 97 99 99 05/11/21 07:16 05/11/21 08:24 05/11/21 08:25 Temperature 98.4 F Temperature Source Temporal Pulse Rate 92 86 86 Blood Pressure 117/80 132/71 H 132/71 H BP Systolic 117 132 132 BP Diastolic 80 71 71 Pulse Ox 91 99 05/11/21 08:26 Temperature Temperature Source Pulse Rate 83 Blood Pressure BP Systolic BP Diastolic Pulse Ox 99 Weight Weight: 152 lb 9.6 oz Body Mass Index (BMI) 27.8 Physical Exam Const alert, oriented x3, no apparent distress and healthy appearing General Appearance: cooperative; Negative for anxious HEENT normocephalic Face and Sinus: normal facial exam Eyes EOMs intact bilaterally and no scleral icterus General Eye: normal appearance of both eyes Neck full ROM and supple Lymph Lymphatic: no lymphadenopathy noted Chest Chest: abnormal inspection of the chest Resp normal respiratory effort Effort and Inspection: able to speak in complete sentences Cardio regular rate GI soft to palpation and non-tender Inspection: gravid Palpation: soft; Negative for tender external exam normal Amniotic Fluid: ROM+plus Back/Spine no CVA tenderness Extremity normal to inspection, full ROM and no clubbing, cyanosis or edema General Extremity: Negative for calf tenderness or edema Skin Lesions: no lesions Rashes: no rashes Psych mental status grossly normal Labs Labs Labs: Blood Type O POSITIVE Antibody Screen NEGATIVE Hct 35.1 % (37-47) L Hgb 12.4 g/dL (12.0-15.0) Syphilis Total Ab Non-reactive Rubella IgG Antibody Reactive (Nonreactive) Hep Bs Antigen Non-Reactive (Nonreactive) Chlamydia DNA (VINNY) Negative (Negative) Neisseria gonorrhoeae DNA (VINNY) Negative (Negative) HIV 1&2 Antibody Non-Reactive (Nonreactive) Glucose 1 Hr 50 gm 129 mg/dL (70-140) Rhogam given: No Miscellaneous Test Assessment & Plan (1) Supervision of other normal : COMMENT: PRR PROSPER: 05/19/21, maki Bear PC: Kapil Spouse: Norbert (2) : QUALIFIERS: Weeks of gestation: 38 weeks Qualified Code(s): Z3A.38 - 38 weeks gestation of COMMENT: NIPT low risk, declines carrier, ntd declined. Anatomy US normal. GBS neg (3) Active labor at term: PLAN: Patient presents IAL, plan expectant management for , pitocin PRN if needed. Pain management: plans epidural. GBS negative. Management of any complications: none I have reviewed the [facility] and made any clinically relevant updates.
[2021-05-11] MEDS: Oxytocin 30 units/NS 500 ml 30 UNITS/500 ML IV.SOLN 334 UNITS IV (10:12)
--- NOTE | 2021-05-11 10:34 | EX.PCM.OBRPT ---
Maternal Data Information PROSPER Calculator Estimated Delivery Date Method Current WG Current Estimate 05/19/21 LMP (Certain) 38w 6d Vaginal Delivery Maternal Presentation Maternal Presentation: Active Labor Operative Information Date of Procedure: 05/11/21 Pre-Operative Diagnosis: @ 38 weeks 6 days, srom and active labor Post-Operative Diagnosis: @ 38 weeks 6 days, srom and active labor Type of Anesthesia: Epidural Estimated Blood Loss: 100cc Findings Description of Procedure: Patient began pushing and delivered the head in the NEHEMIAS presentation. The head was delivered atraumatically and a loose nuchal cord ?1 was identified and easily reduced over the 's head. The anterior and posterior shoulders delivered without complication followed by the rest of the infant and the infant was placed on the maternal abdomen. Delayed cord clamping was employed for approximately 60 seconds. Cord was clamped and cut and gentle traction was applied to the cord and the placenta delivered spontaneously immediately following it was noted to be intact with three-vessel cord. The perineum and vagina were inspected and noted to have no perineal lacerations. There was a small vaginal side wall tear that was repaired with 2 figure of 8 stitches using a 2-0 vicryl suture. EBL was 100 cc. Patient and tolerated delivery well. Presentation: Vertex Amniotic Membrane Rupture Type: Spontaneous Amniotic Fluid Description: Clear Placental Delivery Description: Spontaneous Placenta Disposition: [facility] Cord Vessel Description: 3 Vessels Cord Entanglement: Around neck x 1, loose A Gender: Male (1 minute): 8 (5 minute): 9 Delayed Cord Clamping: Yes Post Vaginal Delivery Medications Given After Delivery: IV Pitocin Episiotomy Description: None Laceration: Vaginal Extension/lac (see description of procedure for details ) Complication Complications: None Multi Select Codes Urinary/Genital Urinary/Genital CPT Codes: 74878 Vaginal Delivery [facility]
[2021-05-11] MEDS: Ibuprofen 600 MG Tablet PO (20:09)
[2021-05-12 00:40] VITALS: BP 107/61; PULSE 70; RESP 16; TEMP 36.6
[2021-05-12 04:45] VITALS: BP 104/71; PULSE 68; RESP 16; TEMP 36.3
--- NOTE | 2021-05-12 08:00 | PCM.DC ---
Discharge Instructions Diet Discharge Diet: No restrictions Activity Discharge Activity: Return to Normal Activity, May Not Drive (while taking narcotic pain medications.) and May Shower May resume sexual activity in: 4-6 weeks Dressing / Incision Call your doctor if your incision/area has: Continuous Slow Oozing, Sudden Increased Bleeding, Increased Pain/ Swelling, Increased Redness and Foul Smelling Discharge Follow Up Care Please Follow Up With: Delphine Cisneros DO When: Call [phone] to make an appointment with your doctor in 6 weeks. If you had elevated blood pressure or 4th degree laceration, you will need to be seen in 2 weeks. Test Results: Test results from this visit will be discussed in further detail at your follow-up appointment, if applicable. Discharge Plan Admission Admit Date/Time: 05/11/21 04:30 Primary Reason for Your Visit: vaginal delivery Attending Provider: Delphine Cisneros Primary Care Provider: Primo Lara Discharge Orders/Prescriptions Prescriptions: New ibuprofen 600 mg tablet 600 mg PO Q6H PRN (Reason: pain) 7 Days Qty: 28 RF: 0 nitrofurantoin monohyd/m-cryst [Macrobid] 100 mg capsule 100 mg PO BID Qty: 14 RF: 0 fluconazole [Diflucan] 150 mg tablet 150 mg PO DAILY 2 Days Qty: 2 RF: 0 No Action PNV #[id number] acid-dha 35 mg iron-5 mg iron-1 mg capsule 1 cap PO DAILY RF: 0 Referrals / Follow Up: Primo Lara MD [Primary Care Provider] -
[2021-05-12 09:39] VITALS: BP 112/80; PULSE 78; RESP 14; TEMP 36.3
== END 2021-05-12 12:00 | disposition home or self-care (01) | DRG 806 ==
LOC: WPOUT 04:33 → WP 04:33
PROVIDERS: Admitting Provider Obstetrics & Gynecology; PCP Family Medicine; Referring Provider Obstetrics & Gynecology; Visit Provider Obstetrics & Gynecology
DX: O69.81X0 Labor and delivery complicated by cord around neck, without compression, not applicable or unspecified (principal); Z37.0 Single live birth; O71.4 Obstetric high vaginal laceration alone; Z3A.38 38 weeks gestation of pregnancy
CPT/HCPCS: 59025; 59050; 85025; 86850; 86900; 86901; 99218; J7120; G0378

== ENCOUNTER → 2022-11-26 | Outpatient (CLI) | payer BC, SELFPAY ==
[2022-12-17 13:20] LABS: HPV Reflexed? NOT INDICATED
== END | disposition home or self-care (01) ==
LOC: LABSPEC 13:21
PROVIDERS: PCP Family Medicine; Referring Provider Obstetrics & Gynecology; Visit Provider Obstetrics & Gynecology
DX: Z12.4 Encounter for screening for malignant neoplasm of cervix (principal)
CPT/HCPCS: 88175; G0145